=== PATIENT | male | born 1960 | race Caucasian/White ===

== ENCOUNTER 2016-04-21 13:49 | Emergency (ER) | payer OTHER ==
[2013-10-28 08:40] VITALS: BMI 22.3
[~2016-04-21 13:49] MED LIST: BUPRENORPHIN-N1 EACH SL
== END 2016-04-21 15:45 | disposition home or self-care (01) ==
LOC: D.ER 13:49
DX: R07.89 Other chest pain (principal); R74.8 Abnormal levels of other serum enzymes; J44.9 Chronic obstructive pulmonary disease, unspecified; Z86.73 Personal history of transient ischemic attack (TIA), and cerebral infarction without residual deficits; I10 Essential (primary) hypertension

== ENCOUNTER 2016-06-19 11:32 | Outpatient (CLI) | payer OTHER ==
[~2016-06-19] VITALS: Ht 175.3 cm; Wt 70.0 kg
--- NOTE | ~2016-06-19 | HEMODYNAMI ---
PATIENT:RANDA ROSENBAUM JR MEDICAL RECORD: [id number] : 58 LOCATION:[facility] D.6 ADMISSION DATE: 06/19/16 Generatedon:06/20/20168:36 Patient name: RANDA ROSENBAUM Patient #: [id number] : 1960 Date of study: 06/20/2016 Page: Of Hemodynamic Procedure Report Patient Data Patient Demographics Procedure consent was obtained First Name: RANDA Gender: Male Last Name: ILSA Suffix: Patient #: [id number] : 1960 Age: 55 year(s) SSN: [id number] Race: Unknown Additional ID: [id number] Contact details [address]: [address] [place] [address] State: [place] City: [place] Zip code: [address] Admission Admission Data Admission Date: 06/19/2016 Admission Time: 11:32 Arrival Date: 06/20/2016 Arrival Time: 0:00 Room #: D.2116 Height (in.): 69.03 BSA: 2.73 (m2) Height (cm.): 175.34 BMI: 57.01 (kg/m2) Weight (lbs.): 386.38 Weight (kg.): 175.26 Lab Results Lab Result Date: 06/20/2016 Lab Result Time: 0:00 Biochemistry Name Units Result Min Max BUN mg/dl 9 --(*---)-- 7 18 CK-MB ng/ml 1.1 --(-*--)-- 0 3.6 Creatinine mg/dl 0.9 --(-*--)-- 0.6 1.3 Creatinine l 112 --(-*--)-- 21 215 Kinase Troponin l ng/ml 0.017 --(-*--)-- 0 0.06 CBC Name Units Result Min Max Hemoglobin g/dl 12.7 -*(----)-- 13.5 17.5 Procedure Procedure Types Cath Procedure Diagnostic Procedure [facility] w/Coronaries Miscellaneous Procedures Moderate Sedation up to 15 minutes Procedure Description Procedure Date Procedure Date: 06/20/2016 Procedure Start Time: 8:25 Procedure End Time: 8:33 Procedure Staff Name Function Los Oh MD Performing Physician Heladio Dinero RT Scrub Sean Stinson RN Nurse Kathy Jordan RT Monitor Procedure Data Cath Procedure Fluoroscopy Diagnostic fluoroscopy Total fluoroscopy Time: 0.9 time: 0.9 min min Diagnostic fluoroscopy Total fluoroscopy dose: 353 dose: 353 mGy mGy Contrast Material Contrast Material Type Amount (ml) Isovue 300 67 Entry Location Entry Primary Successful Side Size Upsize Upsize Entry Closure Succes sful Closure Location (Fr) 1 (Fr) 2 (Fr) Remarks Device Remarks Femoral Right 5 Fr Exoseal artery Estimated blood loss: 10 ml Diagnostic catheters Device Type Used For End Catheter Placement Cordis 5Fr Pigtail Procedure Catheter (MP) Cordis 5Fr JL 4.0 Procedure Catheter (MP) Cordis 5Fr 3DRC Catheter Procedure (MP) Procedure Complications No complications Procedure Medications Medication Administration Route Dosage Oxygen NC 2 l/min Lidocaine 2% added to field 20 Heparin Flush Bag added to field 2 bags (1000units/500ml NS) 0.9% NaCl I.V. 100 ml/hr Versed I.V. 2 mg Fentanyl I.V. 100 mcg Versed I.V. 2 mg Fentanyl I.V. 100 mcg Versed I.V. 2 mg Fentanyl I.V. 100 mcg Hemodynamics Rest BSA: 2.73 (m2) HGB: 12.7 (g/dl) O2 Consumption: Estimated: 303.53 (ml/min) O2 Co nsumption indexed: Estimated:111.18 (ml/min/m) Heart Rate: 51 (bpm) Snapshots Pre Cath Intra NCS Post Cath Vital Signs Time Heart Resp SPO2 NIBP Rhythm Pain Sedation Rate (ipm) (%) (mmHg) Status Level (bpm) 8:00:53 51 22 99 125/67(97) NSR 0 (11) 10(A) , No pain 8:05:05 50 18 100 112/65(95) NSR 0 (11) 10(A) , No pain 8:09:08 52 21 100 107/65(89) NSR 0 (11) 10(A) , No pain 8:13:14 53 19 98 110/60(82) NSR 0 (11) 10(A) , No pain 8:17:20 53 18 100 104/67(79) NSR 0 (11) 10(A) , No pain 8:21:24 53 17 99 105/64(84) NSR 0 (11) 10(A) , No pain 8:25:30 52 16 99 104/59(70) NSR 0 (11) 10(A) , No pain 8:29:35 55 20 98 107/58(85) NSR 0 (11) 10(A) , No pain 8:33:41 54 18 97 100/59(82) NSR 0 (11) 10(A) , No pain Medications Time Medication Route Dose Verified Delivered Reason Notes Effec tiveness by by 7:58:47 Oxygen NC 2 Los Buffie used for l/min Althea Stinson RN procedure 7:58:53 Lidocaine 2% added 20ml Los Los for local to vial Althea Oh MD anesthetic field 7:58:59 Heparin Flush added 2 Los Los used for Bag to bags Althea Oh MD procedure (1000units/500ml field NS) 8:03:53 0.9% NaCl I.V. 100 Los Buffie Per ml/hr Althea Stinson RN physician 8:25:30 Versed I.V. 2 mg Los Buffie for Althea Stinson RN sedation 8:25:36 Fentanyl I.V. 100 Los Buffie for mcg Althea Stinson RN sedation 8:28:53 Versed I.V. 2 mg Los Buffie for Althea Stinson RN sedation 8:28:56 Fentanyl I.V. 100 Los Buffie for keegan Stinson RN sedation 8:32:11 Versed I.V. 2 mg Los Buffie for Althea Stinson RN sedation 8:32:14 Fentanyl I.V. 100 Los Buffie for keegan Stinson RN sedation Procedure Log Time Note 7:37:14 Patient Weight : 175.26 kg 7:41:52 Lab Result : CK-MB 1.1 ng/ml 7:41:52 Lab Result : Creatinine 0.9 mg/dl 7:41:52 Lab Result : BUN 9 mg/dl 7:41:52 Lab Result : Hemoglobin 12.7 g/dl 7:41:52 Lab Result : Troponin l 0.017 ng/ml 7:41:52 Lab Result : Creatinine Kinase 112 l 7:42:04 Diagnostic Cath Status : Elective 7:42:46 Sean Stinson RN sent for patient. Start room use. 7:42:48 Time tracking: Regular hours 7:44:01 Plan of Care:Hemodynamics will remain stable., Cardiac rhythm will remain stable., Comfort level will be maintained., Respiratory function will remain adequate., Patient/ family verbilizes understanding of procedure., Procedure tolerated without complication., Recovers from procedure without complications.. 7:58:47 Oxygen 2 l/min NC was administered by Sean Stinson RN; used for procedure; 7:58:53 Lidocaine 2% 20ml vial added to field was administered by Los Oh MD; for local anesthetic; 7:58:59 Heparin Flush Bag (1000units/500ml NS) 2 bags added to field was administered by Los Oh MD; used for procedure; 7:59:28 Patient received from PCU to [facility] 2 Alert and oriented. Tansferred to table in Supine position. 7:59:29 Warm blankets applied, and vicenta hugger turned on for patient comfort. 7:59:30 Correct patient and procedure confirmed by team. 7:59:32 Signed procedure consent form obtained from patient. 7:59:33 ECG and BP/O2 sat monitors applied to patient. 7:59:34 Full Disclosure recording started 7:59:42 Vital chart was started 8:00:11 Rhythm: sinus bradycardia 8:00:28 H&P Date Dictated: 06/19/2016 Within 30 days and on chart.. 8:00:30 Pre-procedure instructions explained to patient. 8:00:31 Pre-op teaching completed and patient verbalized understanding. 8:00:32 Baseline sample Acquired. 8:00:38 Family in patients room. 8:00:41 Patient NPO since Midnight. 8:00:48 Is the patient allergic to Iodine/contrast media? No. 8:02:02 Patient diabetic? No. 8:02:21 Snore? No 8:02:23 Sleep apnea? Yes 8:02:30 Dentures? No ? 8:02:36 Patient pain scale 0/10 ?. 8:02:43 IV patent on arrival in right hand with 0.9% NaCl at [facility]. 8:03:53 0.9% NaCl 100 ml/hr I.V. was administered by Sean Stinson RN; Per physician; 8:04:20 Lab results completed and on chart. 8:04:28 Right groin area was prepped with chlora-prep and draped in sterile fashion 8:04:32 Alarms reviewed by R. N. 8:04:33 Sharps counted by scrub and verified by R.N. 8:04:35 Physician paged 8:04:36 Physician arrived 8:07:59 Patient Height : 175.34 cm 8:08:22 Arrival Date: 06/20/2016 12:00:00 AM 8:09:48 Zero performed for pressure channel P1 8:24:01 --------ALL STOP TIME OUT------ 8:24:02 Final Timeout: patient, procedure, and site verified with staff and physician. All members of the team are in agreement. 8:24:04 Right groin site verified by team. 8:24:08 Physical assessment completed. ASA score P 2 - A patient with mild systemic disease as per Los Oh MD. 8:24:12 Sedation plan: IV Moderate Sedation Versed, Fentanyl 8:25:30 Versed 2 mg I.V. was administered by Sean Stinson RN; for sedation; 8:25:36 Fentanyl 100 mcg I.V. was administered by Sean Stinson RN; for sedation; 8:25:40 Procedure started. 8:25:43 Local anesthetic to right femoral artery with Lidocaine 2% by Los Oh MD.INITIAL ACCESS ONLY 8:26:01 A 5 Fr sheath was inserted into the Right Femoral artery 8:26:07 Use device set Femoral Dx 8:26:09 Acist Syringe opened to sterile field. 8:26:10 Bag Decanter opened to sterile field. 8:26:10 Medline Cath Pack opened to sterile field. 8:26:11 Terumo 5Fr Dermott Sheath opened to sterile field. 8:26:11 St Nicolas 260cm J .035 wire opened to sterile field. 8:26:12 Acist Hand Control opened to sterile field. 8:26:13 Acist Manifold opened to sterile field. 8:26:13 Diagnostic Infinity 5Fr Multipack catheter opened to sterile field. 8:26:14 Tegaderm 4 x 4 opened to sterile field. 8:26:28 A Cordis 5Fr Pigtail Catheter (MP) was advanced over the wire and used for Procedure. 8:26:36 LV gram done using FELIX 8:27:16 EF : 55 % 8:27:18 Catheter removed. 8:27:25 A Cordis 5Fr JL 4.0 Catheter (MP) was advanced over the wire and used for Procedure. 8:27:35 LCA angiography performed. 8:28:53 Versed 2 mg I.V. was administered by Sean Stinson RN; for sedation; 8:28:56 Fentanyl 100 mcg I.V. was administered by Sean Stinson RN; for sedation; 8:29:13 Catheter removed. 8:29:21 A Cordis 5Fr 3DRC Catheter (MP) was advanced over the wire and used for Procedure. 8:30:08 Catheter removed. 8:30:52 Cordis 5Fr Exoseal opened to sterile field. 8:31:11 Sheath removed intact; hemostasis achieved with Exoseal to the Right Femoral artery. 8:31:14 Procedure ended.(Physican Out) 8:31:42 Fluoroscopy time 00.90 minutes. 8:31:49 Fluoroscopy dose: 353 mGy 8:31:49 Flurop Dose total: 353 8:31:54 Contrast amount:Isovue 300 67ml. 8:31:55 Sharps counted by scrub and verified by R.N. 8:32:08 Insertion/operative site no bleeding no hematoma. 8:32:11 Versed 2 mg I.V. was administered by Sean Stinson RN; for sedation; 8:32:13 Post-op/insertion site Right Femoral artery dressed using a 4 x 4 and Tegaderm. 8:32:14 Fentanyl 100 mcg I.V. was administered by Sean Stinson RN; for sedation; 8:32:19 Post Procedure Pulses reassessed and unchanged 8:32:23 Post-procedure physical assessment completed. ASA score P 2 - A patient with mild systemic disease as per Los Oh MD. 8:32:37 Post procedure rhythm: unchanged. 8:32:40 Estimated blood loss: 10 ml 8:32:41 Post procedure instruction explained to patient.Patient verbalizes understanding. 8:32:46 Procedure and supply charges have been captured, reviewed, submitted and are correct. 8:33:09 Procedure Complication : No complications 8:33:12 Vital chart was stopped 8:33:13 See physician's report for complete and final results. 8:33:16 Report given to [facility]. 8:33:19 Patient transfered to [facility] with Bed. 8:33:21 Procedure ended. 8:33:21 Full Disclosure recording stopped 8:33:27 End room use (Document Last) Device Usage Item Name Manufacture Quantity Catalog Hospital Part Current Minimal Lo t# / Number Charge Number Stock Stock Serial# Code Acist Acist 1 [id number] [id number] 234685 370464 20 Syringe Medical Systems Inc Bag Microtek 1 2002S 382055 93136 507118 5 Decanter Medical Inc. Medline Cardinal 1 [id number] 574266 96901 938141 5 Cath Pack Health Terumo 5Fr Terumo 1 [id number] 559825 790954 148637 [address] Nicolas 1 756939 205826 386020 876631 30 260cm J .035 wire Acist Hand Acist 1 79880 384336 917013 078979 5 Control Medical Systems Inc Acist Acist 1 74656 469994 225737 185594 5 Manifold Medical Systems Inc Diagnostic Cardinal 1 [id number] 167542 04523 138026 30 Infinity Health 5Fr Multipack catheter Tegaderm 4 3M 1 1626W 427114 759773 725822 5 x 4 Cordis 5Fr Cardinal 1 151007 5 Pigtail Health Catheter (MP) Cordis 5Fr Cardinal 1 589332 5 JL 4.0 Health Catheter (MP) Cordis 5Fr Cardinal 1 672923 5 3DRC Health Catheter (MP) Cordis 5Fr Cardinal 1 EX500 599423 843044 982942 10 Hammerhead Navigation Signature Audit Superior Stage Time Signature Unsigned Intra-Procedure 06/20/2016 Kathy Jordan 8:36:22 AM RT(R) Signatures Monitor : Kathy Jordan Signature : RT Date : Time : [facility] [address] [place] [address]
--- NOTE | ~2016-06-19 | OP ---
PATIENT NAME: RANDA ROSENBAUM JR MEDICAL RECORD: [id number] :58 LOCATION:D.M2 D.2116 ADMISSION DATE: SURGEON: JOANN GARCIA MD DATE OF OPERATION: 06/20/2016 PROCEDURES: 1. Left heart catheterization. 2. Selective coronary angiography. 3. Left ventriculogram. INDICATIONS: Angina and coronary artery disease. PROCEDURE IN DETAIL: After informed consent was obtained and after detailed explanation of risks, benefits as well as alternative therapies, the patient elected to proceed with angiogram and heart catheterization. The right femoral area was prepped and draped in normal sterile fashion. The right femoral artery was cannulated via modified Seldinger technique with placement of 5-Somali sheath. All catheters exchanged through this sheath. FINDINGS: The left ventriculogram was performed in standard 30-degree FELIX view, reveals good cardiac wall motion throughout all segments. Overall ejection fraction 55%-60%. SELECTIVE CORONARY ANGIOGRAPHY: 1. Left main has 80% stenosis. 2. Left anterior descending has 80% stenosis in the mid vessel. 3. Right coronary has 70% stenosis at the ostium, 70% stenosis in mid vessel. OVERALL IMPRESSION: Severe 3-vessel coronary artery disease, left main disease. Evaluate for coronary bypass graft surgery. TRANSINT:[id number] Voice Confirmation ID: [id number] DOCUMENT ID: [id number] JOANN GARICA MD CC: [id number] DICTATION DATE: 06/20/16836 SENSOR TECHNICIAN: 06/20/16 0902 [facility] [address] [place] [address]
[2016-06-19 12:45] LABS: ALBUMIN 3.3 g/dL (3.4-5.0); ALKALINE PHOSPHATASE 113 U/L (46-116); ALT (SGPT) 19 U/L (10-68); BILIRUBIN - TOTAL 1.12 mg/dL (0.2-1.3); CALC OSMOLALITY 272 mosm/kg (275-300); CARBON DIOXIDE 31.7 mmol/L (21.0-32.0); CHLORIDE - SERUM 101 mmol/L (98-107); CREATININE - SERUM 0.9 mg/dL (0.6-1.3); GLUCOSE 92 mg/dL (74-106); POTASSIUM - SERUM 4.3 mmol/L (3.5-5.1); PROTEIN - SERUM 7.4 g/dL (6.4-8.2); SODIUM 137 mmol/L (136-145); UREA NITROGEN 9 mg/dL (7-18); eGFR NON AFRICAN AMERICAN > 90 mL/min (90-120)
[2016-06-19 12:50] LABS: CHOL - HDL RATIO 3.3 ratio (2.3-4.9); CHOLESTEROL, TOTAL 140 mg/dL (0-200); CKMB 1.1 U/L (0.0-3.6); CREATINE KINASE 112 UL (21-232); HDL CHOLESTEROL 43 mg/dL (32-96); LDL CHOLESTEROL 87 mg/dL (0-100); TRIGLYCERIDE 52 mg/dL (30-200)
[2016-06-19 12:51] LABS: TROPONIN-I < 0.017 ng/mL (0.000-0.060)
[2016-06-19 12:59] LABS: BASOPHILS 0.2 % (0-2); EOSINOPHILS 0.2 % (0-7); HEMATOCRIT 38.3 % (42.0-54.0); HEMOGLOBIN 12.7 g/dL (13.5-17.5); IMMATURE GRANULOCYTES 0.2 % (0-5); LYMPHOCYTES 28.7 % (15-50); MCH 30.5 pg (26.0-34.0); MCHC 33.2 g/dL (31.0-37.0); MCV 92.1 fL (80.0-100.0); MEAN PLATELET VOLUME 9.2 fL (7.4-10.4); MONOCYTES 10.9 % (2-11); NEUTROPHILS 59.8 % (40-80); PLATELET COUNT 214 10x3/uL (130-400); RBC 4.16 10x6/uL (4.20-6.10); WBC 6.6 10x3/uL (4.8-10.8)
--- NOTE | 2016-06-19 17:00 | NUR ---
ARRIVE TO ROOM VIA WHEELCHAIR FROM ER VIA WHEELCHAIR. ALERT AND ORIENTED X4. AMBULATES FROM WHEELCHAIR TO BED. GAIT STEADY. REFUSE SCDs. DENIES SOB. SINUS RHYTHM 60bpm ON TELEMETRY. IV RT FA SL. DROVE SELF HERE. PATIENT STATES, "I KNOW I WON'T BE ABLE TO DRIVE MYSELF TOMORROW."CONSENTS SIGNED ON CHART FOR BRUSH MAKER. CONTINUE ADMISSION PROCESS. BED LOCKED AND LOW. CALL LIGHT IN REACH. TWO SIDERAILS UP.
[2016-06-19 17:50] VITALS: BP 98/46; Ht 175.3 cm; Wt 70.0 kg
[2016-06-19 19:00] VITALS: BP 137/47
--- NOTE | 2016-06-19 19:00 | NUR ---
INITIAL ROUNDS MADE. PT SITTING UP IN BED WATCHING TV. DENIES NEEDS OR C/O AT THIS TIME. CALL LIGHT IN REACH. WILL CONT TO MONITOR.
--- NOTE | 2016-06-19 23:08 | NUR ---
FIRE WATCHER AT BEDSIDE FOR VS. NEEDS ADDRESSED AT THIS TIME. CALL LIGHT IN REACH. WILL CONT TO MONITOR.
[2016-06-20] VITALS: BP 108/55
--- NOTE | 2016-06-20 03:22 | NUR ---
RESTING WELL WITH EYES CLOSED, CALL LIGHT IN REACH. WILL CONT TO MONITOR.
[2016-06-20 04:00] VITALS: BP 95/44
--- NOTE | 2016-06-20 06:35 | NUR ---
UP TO SHOWER FOR PRE CATH.
--- NOTE | 2016-06-20 07:20 | NUR ---
RECEIVED PT IN BED AAOX4 RESP UNLABORED NAD NOTED PREOP MEDS GIVEN AT THIS TIME
[2016-06-20 08:03] VITALS: BP 101/51
--- NOTE | 2016-06-20 08:33 | HP ---
PATIENT: RANDA ROSENBAUM JR MEDICAL RECORD: [id number] ACCOUNT: [id number] LOCATION:[address] : 58 ADMISSION DATE: 06/19/16 HISTORY AND PHYSICAL EXAMINATION DIAGNOSES: 1. Unstable angina. 2. Coronary artery disease. 3. Previous percutaneous transluminal coronary angioplasty stent times 3. HISTORY OF PRESENT ILLNESS: Mr. Rosenbaum presents with increasing anginal symptomatology over the past 2 days, just like that of his previous angina before needing a stent, status post PTCA stent at another institution times 3, last being approximately 3 years ago. His EKG is with no acute ST-T abnormalities, continues to have the episodes of chest pain. PHYSICAL EXAMINATION: GENERAL APPEARANCE: Well-nourished, well-developed, appears stated age. Level of distress, comfortable. PSYCHIATRIC: Mental status, alert, normal affect. Orientation, oriented to time, place and person. EYES: Lids and conjunctiva, noninjected. No discharge, no pallor. ENT: Lips, teeth, gums, normal dentition. Oropharynx, no cyanosis, no pallor. NECK: Carotid arteries, bilateral normal upstroke, no bruits, no thrills. JUGULAR VEINS: No jugular venous pressure or distention. CERVICAL LYMPH NODES: Nontender, nonenlarged. THYROID: Not enlarged. Nontender. No nodules. LUNGS: Respiratory effort, unlabored. CHEST: Normal curvature. No thoracic deformity. No chest wall tenderness. Percussion, resonant. Auscultation, clear. No wheezes, no rales, no rhonchi. CARDIOVASCULAR: Precordial exam, nondisplaced. No heaves or pericardial thrills. Rate and rhythm, regular. Heart sounds, normal S1, normal S2. No S3, no gallop, no rub. Systolic murmur, not heard. Diastolic murmur, not heard. EXTREMITIES: No cyanosis, no edema. Peripheral pulses, full and equal in all extremities, except as noted. No bruits appreciated. ABDOMEN: Soft, nondistended. Normal aorta. No bruit. Nontender. No masses. Liver, nontender, no hepatomegaly. Spleen, nontender, no splenomegaly. MUSCULOSKELETAL: No joint tenderness. No joint swelling. No erythema. NEUROLOGICAL: Normal gait, normal strength, normal tone. SKIN: Warm and dry. REVIEW OF SYSTEMS: The patient reports easy bruising but reports no swollen glands. The patient reports no fever, no night sweats, no significant weight gain, no significant weight loss. No significant exercise tolerance. The patient reports no dry eyes, no irritation, no vision change. Patient reports no difficulty hearing and no ear pain. Patient reports no frequent nose bleeds or nose and sinus problems. Patient reports on arm pain on exertion. No shortness of breath while lying down. No history of heart murmur. Patient reports no cough, no wheezing or coughing up blood. Patient reports no abdominal pain, no vomiting. Normal appetite. No diarrhea and not vomiting blood. No nausea and no constipation. Patient reports no incontinence. No difficulty urinating. No hematuria. No increased frequency. Patient reports no muscle aches. No weakness, no arthralgias, no back pain. No swelling of the extremities. Patient reports no abnormal mole, no jaundice, no rashes. Reports no loss of consciousness. No weakness and no numbness. No seizures, dizziness, HISTORY AND PHYSICAL [id number] RANDA ROSENBAUM JR or headaches. The patient reports no depression, no sleep disturbance, feeling safe in a relationship and no alcohol abuse. Patient reports on fatigue. Reports no runny nose or sinus pressure. No itching, no hives, and no frequent sneezing. OVERALL IMPRESSIONS: Chest pain compatible with angina in a patient with multivessel coronary artery disease, most likely has recurrent hemodynamically significant disease. We will proceed with coronary angiography in the a.m. Further care depends upon findings of the angiography. TRANSINT:[id number] Voice Confirmation ID: [id number] DOCUMENT ID: [id number] JOANN GARCIA MD at 0833 CC: [id number] DICTATION DATE: 06/19/16 1543 HARVESTING MANAGER: 06/19/16 1605 [facility] [address] [place] [address]
--- NOTE | 2016-06-20 08:50 | NUR ---
RECEIVED PT VIA BED FROM SCRATCHER RT ANATOLY ROSEN C/D/I VSS NAD NOTED
--- NOTE | 2016-06-20 12:00 | NUR ---
DR CACERES HERE TO SEE PT
[2016-06-20 13:20] LABS: BASOPHILS 0.2 % (0-2); EOSINOPHILS 0.2 % (0-7); HEMOGLOBIN 12.5 g/dL (13.5-17.5); IMMATURE GRANULOCYTES 0.2 % (0-5); LYMPHOCYTES 22.5 % (15-50); MCH 30.8 pg (26.0-34.0); MCHC 32.9 g/dL (31.0-37.0); MCV 93.6 fL (80.0-100.0); MONOCYTES 15.3 % (2-11); NEUTROPHILS 61.6 % (40-80); PLATELET COUNT 216 10x3/uL (130-400); PLT FUNCT.(P2Y12) PLAVIX 186 PRU (194-418); RBC 4.06 10x6/uL (4.20-6.10); RDW 12.9 % (11.5-14.5)
--- NOTE | 2016-06-20 13:30 | NUR ---
PT DISCHARGED HOME LEFT UNIT WITH ALL PERSONAL BELONGINGS VIA W/C
--- NOTE | 2016-06-20 13:30 | NUR ---
REVIEWED DISCHARGE INSTRUCTIONS WITH PT AND STATES UNDERSTANDING COPY GIVEN SALINE LOCK DCD TO RFA WITH 20 GA IV CATHETER INTACT SITE FREE OF REDNESS OR EDEMA ALL PROCEDURES ORDERED BY DR CACERES COMPLETE PT STATES UNDERSTANDING OF COMING BACK IN THRU OUTPATIENTS ON SUNDAY
[2016-06-20 13:37] LABS: APTT 30.4 SECONDS (22.8-39.4); INR 0.97 (0.85-1.17); PROTIME 12.7 SECONDS (11.6-15.0)
[2016-06-20 14:03] LABS: ALBUMIN 3.2 g/dL (3.4-5.0); ALKALINE PHOSPHATASE 119 U/L (46-116); ALT (SGPT) 21 U/L (10-68); BILIRUBIN - TOTAL 0.51 mg/dL (0.2-1.3); CALC OSMOLALITY 276 mosm/kg (275-300); CALCIUM 8.6 mg/dL (8.5-10.1); CARBON DIOXIDE 30.8 mmol/L (21.0-32.0); CHLORIDE - SERUM 103 mmol/L (98-107); CHOLESTEROL, TOTAL 142 mg/dL (0-200); CREATININE - SERUM 0.8 mg/dL (0.6-1.3); GLUCOSE 91 mg/dL (74-106); PHOSPHOROUS 3.9 mg/dL (2.5-4.9); POTASSIUM - SERUM 4.8 mmol/L (3.5-5.1); PROTEIN - SERUM 6.4 g/dL (6.4-8.2); SODIUM 139 mmol/L (136-145); T4 THYROXIN - FREE 1.04 ng/dL (0.76-1.46); THYROID STIMULATING HORMONE 1.43 uIU/mL (0.36-3.74); UREA NITROGEN 10 mg/dL (7-18); URIC ACID 4.6 mg/dL (2.6-7.2); eGFR NON AFRICAN AMERICAN > 90 mL/min (90-120)
[2016-06-20 14:56] LABS: COLD SCREEN ROOM TEMP NEGATIVE (NEGATIVE)
[2016-06-20 15:03] LABS: COLD SCREEN @ 4 DEGREES 2+ (NEGATIVE)
[2016-06-21 10:19] LABS: HEPATITIS C ANTIBODY <0.1 (0.0-0.9)
== END 2016-06-20 13:30 | disposition home or self-care (01) ==
LOC: D.ER 11:32 → D.OPS 11:32 → D.ER 11:32 → D.M2 11:32 → EDSTATUS 14:33 → D.SDCHOLD 14:34 → D.M2 15:52 → D.OPS 06-20 13:30
PROVIDERS: Emergency Medicine; Internal Medicine Cardiovascular Disease
DX: I25.110 Atherosclerotic heart disease of native coronary artery with unstable angina pectoris (principal); Z95.5 Presence of coronary angioplasty implant and graft

== ENCOUNTER → 2016-06-21 10:25 | Outpatient (CLI) | payer OTHER ==
[2016-06-19 17:50] VITALS: BMI 24.4
== END | disposition home or self-care (01) ==
LOC: D.RT 10:25
DX: J44.9 Chronic obstructive pulmonary disease, unspecified (principal); Z01.810 Encounter for preprocedural cardiovascular examination; Z01.811 Encounter for preprocedural respiratory examination

== ENCOUNTER 2016-06-23 05:22 | Inpatient (IN) | payer OTHER ==
[2016-06-23] VITALS (40 sets, daily range): BP systolic 92–156; BP diastolic 40–61; Ht 175.3 cm; Wt 69.6 kg
[~2016-06-23] VITALS: Ht 175.3 cm; Wt 69.6 kg
[2016-06-23] MEDS ORDERED: ATIVAN1 MG PO (06:06)
[2016-06-23 07:57] LABS: PLT FUNCT.(P2Y12) PLAVIX 262 PRU (194-418)
[2016-06-23 14:13] LABS: APTT 36.7 SECONDS (22.8-39.4); INR 1.42 (0.85-1.17); PROTIME 17.3 SECONDS (11.6-15.0)
[2016-06-23 14:14] LABS: CALC OSMOLALITY 293 mosm/kg (275-300); CARBON DIOXIDE 30.9 mmol/L (21.0-32.0); CHLORIDE - SERUM 108 mmol/L (98-107); CREATININE - SERUM 0.8 mg/dL (0.6-1.3); SODIUM 146 mmol/L (136-145); UREA NITROGEN 12 mg/dL (7-18); eGFR NON AFRICAN AMERICAN > 90 mL/min (90-120)
[2016-06-23 14:15] LABS: GLUCOSE 145 mg/dL (74-106)
[2016-06-23 14:36] LABS: HEMATOCRIT 27.8 % (42.0-54.0); HEMOGLOBIN 9.5 g/dL (13.5-17.5); MCH 30.9 pg (26.0-34.0); MCHC 34.2 g/dL (31.0-37.0); MCV 90.6 fL (80.0-100.0); MEAN PLATELET VOLUME 8.7 fL (7.4-10.4); RBC 3.07 10x6/uL (4.20-6.10); RDW 12.7 % (11.5-14.5); WBC 14.7 10x3/uL (4.8-10.8)
--- NOTE | 2016-06-23 14:37 | NUR ---
PT ARRIVED BY BED TO ROOM. SWITCHED OVER TO ICU MONITORS. BILATERAL SOFT WRIST RESTRAINTS APPLIED.
--- NOTE | 2016-06-23 15:30 | NUR ---
INVOS MONITOR: LEFT-55 RIGHT-66
--- NOTE | 2016-06-23 17:05 | NUR ---
PT SWITCHED OVER TO CPAP MODE ON VENT. PS 10. FIO2 40%. RESP RATE 18 PT PULLING TV OF 500.
--- NOTE | 2016-06-23 18:05 | NUR ---
INVOS: LEFT-56 RIGHT-62
--- NOTE | 2016-06-23 18:11 | NUR ---
FAMILY AT BEDSIDE. UPDATED ON PT'S STATUS. PT TOLERATING CPAP WELL.
--- NOTE | 2016-06-23 18:33 | NUR ---
DR. CACERES AT BEDSIDE. TPM: CHANGED TO VVI 60 VMA 10. HR 96. V-SENSING.
--- NOTE | 2016-06-23 18:35 | NUR ---
PT EXTUBATED TO 4LNC PER PROTOCOL. PT TOLERATED WELL. RESP 22. O2 SAT 100%.
--- NOTE | 2016-06-23 19:20 | NUR ---
REPORT RECVD. CARE ASSUMED. INITIAL ASSMNT COMPLETED. SEE FLOWSHEET FOR ALL FINDINGS. LETHARGIC. PERRLA NOTED. MAEW ON COMMAND. RESP EVEN AND SHALLOW. LUNG SOUNDS DIM IN BASES. SPO2 98% ON O2 AT 4LPM NC. SR ON THE MONITOR. TEMP PM VVI 60, SENSING ONLY. PEDAL PULSES PER DOPPLER. RIGHT RADIAL AND LEFT GROIN A-LINES ZEROED AND BALANCED. HYPOTENSIVE. LEVOPHED AND DOPAMINE GTTS IN USE. RIGHT IJ SWAN PATENT, LOCKED, AND SECURED. ZEROED AND BALANCED. CHEST TUBES X3 PATENT AND SECURED TO 20 SM SX. MINIMAL NLOODY DRNG NOTED. ABD SOFT, BS HYPO X4. F/C PATENT TO CRITICORE WITH CLR YELLOW UOP. TURNED AND REPOSITIONED. HOB UP. RESTING WITH NO S/S OF PAIN. 1:[address] CONT CURRENT POC.
--- NOTE | 2016-06-23 21:09 | NUR ---
AT BEDSIDE. UPDATE GIVEN. PT RESTING WITH NO DISTRESS. TOLERATING ICE CHIPS. DROWSY. EYES CLOSED. VSS. SR ON THE MONITOR. SYS B/P WITHIN PARAMETERS. REMAINS ON LEVOPHED AND DOPAMINE GTTS. REPOSITIONED FOR COMFORT AND SKIN INTEGRITY. HOB UP. 1:[address] CONT CURRENT POC.
--- NOTE | 2016-06-23 22:36 | NUR ---
ABGS DRAWN AND RESULTED. K+ LEVEL TO BE TREATED. CA+ LEVEL TO BE TREATED. 2 UNITS PRBC TO BE GIVEN. INITIATING ORDERS AT THIS TIME. SYS B/P 114/45 SR ON THE MONITOR. CONT CURRENT POC.
--- NOTE | 2016-06-23 23:15 | NUR ---
REASSESSMENT COMPLETED. SEE FLOWSHEET FOR ALL FINDINGS. RESTFUL. PERRLA NOTED. MAEW ON COMMAND. RESP EVEN AND SHALLOW. LUNG SOUNDS DIM IN BASES. SPO2 98% ON O2 AT 3LPM NC. SR ON THE MONITOR. TEMP PM VVI 60, SENSING ONLY. PEDAL PULSES PER DOPPLER. RIGHT RADIAL AND LEFT GROIN A-LINES INTACT. HYPOTENSIVE. LEVOPHED AND DOPAMINE GTTS IN USE. WEANING LEVOPHED. RIGHT IJ SWAN PATENT, LOCKED, AND SECURED. CHEST TUBES X3 PATENT AND SECURED TO 20 SM SX. MINIMAL NLOODY DRNG NOTED. ABD SOFT, BS HYPO X4. F/C PATENT TO CRITICORE WITH CLR YELLOW UOP. TURNED AND REPOSITIONED. HOB UP. CITY PLANNING TEACHER MORPHINE IN USE FOR PAIN. 1:[address] CONT CURRENT POC.
[2016-06-24] VITALS (88 sets, daily range): BP systolic 100–140; BP diastolic 47–61
--- NOTE | 2016-06-24 01:06 | NUR ---
RESTING WITH NO DISTRESS. VSS. WEANING LEVOPHED. PRBC INFUSING WITH NO ADV REACTION SEEN. SR ON THE MONITOR. TURNED AND REPOSITIONED. HOB UP. 1:1 NURSE MONITORING IN PROGRESS. CONT CURRENTPOC.
--- NOTE | 2016-06-24 01:30 | NUR ---
2 UNITS PRBC INFUSED. NO ADV REACTION SEEN. LEVOPHED GTT WEANED OFF.
--- NOTE | 2016-06-24 02:25 | NUR ---
ABGS DRAWN AND RESULTED. ALL VALUES WITHIN PARAMETERS. CONT TO WEAN PRESSORS. NO DISTRESS. CONT POC.
--- NOTE | 2016-06-24 03:15 | NUR ---
REASSESSMENT COMPLETED. SEE FLOWSHEET FOR ALL FINDINGS. AOX4. PERRLA NOTED. MAEW ON COMMAND. RESP EVEN AND SHALLOW. LUNG SOUNDS DIM IN BASES. SPO2 98% ON O2 AT 3LPM NC. SR ON THE MONITOR. TEMP PM VVI 60, SENSING ONLY. PEDAL PULSES PER DOPPLER. RIGHT RADIAL AND LEFT GROIN A-LINES INTACT. SYS B/P WITHIN PARAMETERS. DOPAMINE GTT WEANING. RIGHT IJ SWAN PATENT, LOCKED, AND SECURED. CHEST TUBES X3 PATENT AND SECURED TO 20 SM SX. MINIMAL BLOODY DRNG NOTED. ABD SOFT, BS HYPO X4. F/C PATENT TO CRITICORE WITH STEPHANIE UOP. TURNED AND REPOSITIONED. SENIOR INFORMATION SECURITY CONSULTANT MORPHINE IN USE FOR PAIN CONTROL. HOB UP. RESTING WITH NO S/S OF PAIN. 1:[address] CONT CURRENT POC.
--- NOTE | 2016-06-24 05:15 | NUR ---
TURNED AND REPOSITIONED. PROPOSAL EDITOR IN USE FOR PAIN CONTROL. VSS. SR ON THE MONITOR. WEANINF DOPAMINE PER ORDERS. HOB UP. REMAINS IN 1:1 NURSING CARE. CONT CURRENT POC.
[2016-06-24 06:25] LABS: HEMATOCRIT 28.8 % (42.0-54.0); HEMOGLOBIN 9.9 g/dL (13.5-17.5); MCH 29.9 pg (26.0-34.0); MCHC 34.4 g/dL (31.0-37.0); MEAN PLATELET VOLUME 8.8 fL (7.4-10.4); RBC 3.31 10x6/uL (4.20-6.10); RDW 14.6 % (11.5-14.5)
--- NOTE | 2016-06-24 06:28 | NUR ---
AT BEDSIDE. UPDATE GIVEN.
[2016-06-24 06:29] LABS: WBC 9.6 10x3/uL (4.8-10.8)
--- NOTE | 2016-06-24 06:30 | NUR ---
ABGS DRAWN AND RESULTED. ALL WITHIN PARAMETERS. DECREASED FIO2 TO 2LPM NC. INCENTIVE DONE. PULLS 750, FAIR EFFORT. CONT POC.
[2016-06-24 06:44] LABS: ALBUMIN 3.3 g/dL (3.4-5.0); ALKALINE PHOSPHATASE 49 U/L (46-116); ALT (SGPT) 18 U/L (10-68); BILIRUBIN - TOTAL 2.09 mg/dL (0.2-1.3); CALC OSMOLALITY 282 mosm/kg (275-300); CALCIUM 7.9 mg/dL (8.5-10.1); CARBON DIOXIDE 32.1 mmol/L (21.0-32.0); CHLORIDE - SERUM 106 mmol/L (98-107); CREATININE - SERUM 0.7 mg/dL (0.6-1.3); GLUCOSE 119 mg/dL (74-106); PROTEIN - SERUM 5.3 g/dL (6.4-8.2); SODIUM 142 mmol/L (136-145); UREA NITROGEN 10 mg/dL (7-18); eGFR NON AFRICAN AMERICAN > 90 mL/min (90-120)
[2016-06-24 06:45] LABS: POTASSIUM - SERUM 4.6 mmol/L (3.5-5.1)
--- NOTE | 2016-06-24 08:32 | NUR ---
0715-RECIEVED PER FLOW SHEET-PT AWAKE AND ALERT-ABLE TO FOLLOW DIRECTION EASILY-REPOSITIONED TO L WITH PT ASSIST-REZEROED MONITOR-MORPHINE STICKER OPERATOR IN USE-CURRENT STATUS UPDATE GIVEN TO DR CACERES-NO CHANGES IN ORDERS AT THIS TIME
--- NOTE | 2016-06-24 11:29 | NUR ---
1110- DR CACERES AT BEDSIDE-PLASMALYTE DECREASED TO 30ML/H--DIRECTED TO D/C L FEM WITH FEM STOP 1124-L FEM AIDA D/C'D-SUTURE REMOVED-FEMSTOP PER PROTOCOL-HEMOSTASIS WITH NO HEMATOMA AT 94 MMHG-L FOOT WARM TO TOUCH-FAINT PP-INSTRUCTED SUPINE APPROX 1H-PT POOR COMPLIANT-REPEATEDLY MOVED L LEG-REINSTRUCTED AND POSITIONED
--- NOTE | 2016-06-24 11:47 | NUR ---
1145-25MMHG FEMSTOP-DOPPLER FYIER-OMNB-[id number] COOL TO TOUCH-PLASMALYTE AT 30-DOPAMINE AT 3MCG-121/59
--- NOTE | 2016-06-24 13:06 | OP ---
PATIENT NAME: RANDA ROSENBAUM JR MEDICAL RECORD: [id number] :59 LOCATION:[id number] ADMISSION DATE:06/23/16 SURGEON: DARIEL CACERES MD DATE OF OPERATION: 06/23/2016 SURGEON: Dariel Caceres MD. ANESTHESIA: General endotracheal, Dr. Rubio. OPERATIONS PERFORMED: Aortocoronary artery bypass utilizing left internal thoracic to the left anterior descending, reverse saphenous vein segment to the obtuse marginal coronary artery and reverse saphenous vein segment to the distal right coronary artery. PREOPERATIVE DIAGNOSES: Severe atherosclerosis, coronary arteries with a left main lesion and intermediate coronary syndrome. POSTOPERATIVE DIAGNOSES: Severe atherosclerosis, coronary arteries with a left main lesion and intermediate coronary syndrome. INDICATION FOR OPERATION: Intermediate coronary syndrome. FINDINGS OF THE OPERATION: The left internal thoracic artery and greater saphenous vein were of excellent quality for grafting. The target vessels were also of good caliber and quality. Transesophageal echo after induction demonstrated a 20% ejection fraction. This increased to 55% to 60% post-revascularization. ESTIMATED BLOOD LOSS: Cell Saver was used. DESCRIPTION OF PROCEDURE: After informed consent, adequate preoperative medication evaluation, the patient was brought to the operating room, placed on the table in the supine position. After induction of general endotracheal anesthesia and application of appropriate monitoring devices, the chest, neck, abdomen, and both legs were prepped and draped in a sterile field, utilizing Betadine scrub, alcohol, and Betadine solution. A Betadine-impregnated drape was also used. A 5-sheath was placed in the left common femoral artery retrogradely in case a balloon pump was needed. Saphenous vein was then harvested from the right leg and prepared for reverse saphenous vein grafting. The leg was closed over drains utilizing 3-0 Vicryl and skin benedict. A median sternotomy incision was used and dissection carried down the fascia. Hemostasis maintained with electrocautery. Sternum was divided. Innominate vein was identified and protected. Left internal thoracic was taken down and prepared for grafting. The patient was given a calculated dose of heparin, cannulated in the standard fashion utilizing 1 aortic, 1 two-stage cannula in the atrium and inferior vena cava. The patient was placed on cardiopulmonary bypass, cooled to 32 degrees centigrade. A cross clamp was placed just proximal to the aortic cannula. The patient was given cardioplegic solution through the aortic root. The patient was given a cold induction and cold maintenance. The patient was given cold intermittent cardioplegic solution throughout the procedure, either through the grafts, the root or a combination of both. The first vessel to be grafted was the distal right. It was grafted end-to-side utilizing a running 7-0 Prolene suture. Graft was measured back to the aorta and a proximal anastomosis fashioned utilizing running 6-0 Prolene suture. Next, the second OPERATIVE REPORT [id number] RANDA ROSENBAUM obtuse marginal was grafted end-to-side utilizing a running 7-0 Prolene suture. The graft was measured back to the aorta and a proximal anastomosis fashioned utilizing running 6-0 Prolene suture. Next, left internal thoracic was brought through the hole in pericardium, sutured left anterior descending end-to-side utilizing a running 8-0 Prolene suture. All maneuvers to remove trapped air were performed. The patient was given warm cardioplegic reperfusion and controlled reperfusion. The patient rewarmed to 37 degrees centigrade. Two atrial and two ventricular pacing wires were placed on the heart and brought through the epigastric area. The patient was weaned cardiopulmonary bypass. After being stable off bypass, he was given calculated dose of protamine to reverse the heparin. Hemostasis was achieved. A #40 right angle and #36 chest tubes were brought in through the epigastric area and placed in mediastinum. A separate left pleural tube was connected to underwater seal and suction. Chest was again irrigated. Instrument count and sponge count were correct times 2. Chest was closed in layers utilizing #7 wire on the sternum, #2 Vicryl on linea alba and pectoralis fascia. Subcutaneous tissue was approximated with 3-0 Vicryl and skin approximated with 3-0 subcuticular Vicryl. Sterile dressings were applied. The patient tolerated the procedure well and transferred to the CV ICU in satisfactory condition. TRANSINT:[id number] Voice Confirmation ID: [id number] DOCUMENT ID: [id number] DARIEL CACERES MD at 1306 CC: [id number] DICTATION DATE: 06/23/16 1444 BEAUTY SALES CONSULTANT: 06/23/16 2310 ADM IN [address] [id number] [place] [address]
--- NOTE | 2016-06-24 14:59 | NUR ---
NOTED 6 BEAT RUN OF JUNCTIONAL TACHYCARDIA-SPONT RETURN TO SR -NO PACED BEATS WITH VVI 60/10 PACER-URGENT K AND MAG SERUM DRAWN
[2016-06-24 15:05] LABS: MAGNESIUM - SERUM 2.1 mg/dL (1.8-2.4); POTASSIUM - SERUM 4.2 mmol/L (3.5-5.1)
--- NOTE | 2016-06-24 15:24 | NUR ---
MAG-2.1-K4.2-NO FURTHER ARRYTHMIA-SR ON MONITOR
--- NOTE | 2016-06-24 18:07 | NUR ---
ORAL CARE WITH PERIDEX PERFORMED ORDERED
--- NOTE | 2016-06-24 19:15 | NUR ---
REPORT RECVD. CARE ASSUMED. INITIAL ASSMNT COMPLETED. SEE FLOWSHEET FOR ALL FINDINGS. RESTFUL. PERRLA NOTED. MAEW ON COMMAND. RESP EVEN AND SHALLOW. LUNG SOUNDS WITH EXP WHEEZES TO UPPER LOBES AND DIMINISHED IN BASES. SPO2 98% ON O2 AT 2LPM NC. SR ON THE MONITOR. TEMP PM VVI 60, SENSING ONLY. PEDAL PULSES PER DOPPLER. RIGHT RADIAL A-LINE ZEROED AND BALANCED. GOOD WAVE FORM SEEN. CONT TO WEAN DOPAMINE. RIGHT IJ SWAN PATENT, LOCKED, AND SECURED. ZEROED AND BALANCED. CHEST TUBES X3 PATENT AND SECURED TO 20 SM SX. MINIMAL BLOODY DRNG NOTED. ABD SOFT BS HYPO X4. F/C PATENT TO CRITICORE WITH STEPHANIE UOP. TURNED AND REPOSITIONED. HOB UP. RESTING WITH NO S/S OF PAIN. POLISHER DIAL MORPHINE IN USE FOR PAIN CONTROL. 1:[address] HOB UP. HEELS BRIDGED. TEDS/SCDS ON. CONT CURRENT POC.
--- NOTE | 2016-06-24 21:18 | NUR ---
AT BEDSIDE. UPDATE GIVEN. PT TALKATIVE. VSS. SR ON THE MONITOR. DOUGH MAKER MORPHINE PROVIDING PAIN CONTROL. HS SNACK PROVIDED. PO FLUIDS IN REACH. REPOSITIONED FOR COMFORT. HOB UP. REMAINS IN 1:1 NURSING CARE.
--- NOTE | 2016-06-24 23:15 | NUR ---
REASSESSMENT COMPLETED. SEE FLOWSHEET FOR ALL FINDINGS. RESTFUL. PERRLA NOTED. MAEW ON COMMAND. RESP EVEN AND SHALLOW. LUNG SOUNDS DIM IN BASES. SPO2 97% ON O2 AT 2LPM NC. SR ON THE MONITOR. TEMP PM VVI 60, SENSING ONLY. PEDAL PULSES PER DOPPLER. RIGHT RADIAL A-LINE INTACT WITH GOOD WAVE FORM SEEN. SYS B/P WITHIN PARAMETERS. RIGHT IJ SWAN PATENT, LOCKED, AND SECURED. CHEST TUBES X3 PATENT AND SECURED TO 20 SM SX. MINIMAL BLOODY DRNG NOTED. ABD SOFT, BS HYPO X4. F/C PATENT TO CRITICORE WITH STEPHANIE UOP. TURNED AND REPOSITIONED. HOB UP. BEHAVIORAL HEALTH CASE MANAGER MORPHINE IN USE FOR PAIN. 1:[address] CONT CURRENT POC.
[2016-06-25] VITALS (44 sets, daily range): BP systolic 101–147; BP diastolic 48–81
--- NOTE | 2016-06-25 01:20 | NUR ---
RESTING WITH NO DISTRESS. VSS. SR ON THE MONITOR. WEANING DOPAMINE. SYS B/P WITHIN PARAMETERS. TURNED AND REPOSITIONED. PO FLUIDS AT BEDSIDE. TONGUE PRESSER MORPHINE PROVIDING PAIN CONTROL. HOB UP. CONT 1:1 MONITORING.
--- NOTE | 2016-06-25 03:15 | NUR ---
REASSESSMENT COMPLETED. SEE FLOWSHEET FOR ALL FINDINGS. RESTFUL. PERRLA NOTED. MAEW ON COMMAND. RESP EVEN AND SHALLOW. LUNG SOUNDS DIM IN BASES. SPO2 97% ON O2 AT 2LPM NC. SR ON THE MONITOR. TEMP PM VVI 60, SENSING ONLY. PEDAL PULSES PER DOPPLER. RIGHT RADIAL A-LINE INTACT WITH GOOD WAVE FORM SEEN. SYS B/P WITHIN PARAMETERS. RIGHT IJ SWAN PATENT, LOCKED, AND SECURED. CHEST TUBES X3 PATENT AND SECURED TO 20 SM SX. MINIMAL BLOODY DRNG NOTED. ABD SOFT, BS ACTIVE X4. F/C PATENT TO CRITICORE WITH STEPHANIE UOP. TURNED AND REPOSITIONED. HOB UP. BARREL DEDENTING MACHINE OPERATOR MORPHINE IN USE FOR PAIN. 1:[address] CONT CURRENT POC.
--- NOTE | 2016-06-25 05:17 | NUR ---
RESTING WITH NO DISTRESS. REPOSITIONED FOR COMFORT AND SKIN INTEGRITY. VSS. SR ON THE MONITOR. SYS B/P WITHIN PARAMETERS. NO PRESSORS IN USE. PO FLUIDS PROVIDED. HANDLE LATHE OPERATOR MORPHINE PROVIDING PAIN CONTROL. HOB UP. CONT 1:1 NURSING CARE.
--- NOTE | 2016-06-25 06:11 | NUR ---
AT BEDSIDE. UPDATE GIVEN.
[2016-06-25 06:18] LABS: HEMOGLOBIN 8.7 g/dL (13.5-17.5); MCH 29.6 pg (26.0-34.0); MCHC 33.5 g/dL (31.0-37.0); MCV 88.4 fL (80.0-100.0); MEAN PLATELET VOLUME 9.4 fL (7.4-10.4); PLATELET COUNT 95 10x3/uL (130-400); RBC 2.94 10x6/uL (4.20-6.10); RDW 14.4 % (11.5-14.5); WBC 8.2 10x3/uL (4.8-10.8)
[2016-06-25 06:29] LABS: ALBUMIN 2.8 g/dL (3.4-5.0); ALKALINE PHOSPHATASE 56 U/L (46-116); ALT (SGPT) 18 U/L (10-68); CALC OSMOLALITY 270 mosm/kg (275-300); CALCIUM 8.4 mg/dL (8.5-10.1); CARBON DIOXIDE 31.7 mmol/L (21.0-32.0); CHLORIDE - SERUM 102 mmol/L (98-107); CREATININE - SERUM 0.7 mg/dL (0.6-1.3); GLUCOSE 116 mg/dL (74-106); POTASSIUM - SERUM 4.4 mmol/L (3.5-5.1); PROTEIN - SERUM 5.4 g/dL (6.4-8.2); SODIUM 135 mmol/L (136-145); UREA NITROGEN 12 mg/dL (7-18); eGFR NON AFRICAN AMERICAN > 90 mL/min (90-120)
--- NOTE | 2016-06-25 06:40 | NUR ---
ALL LAB VALUES WITHIN PARAMETERS.
[2016-06-25 07:25] LABS: PLATELET ESTIMATE DECREASED
--- NOTE | 2016-06-25 07:58 | NUR ---
0715-RECIEVED AWAKE ALERT-ABLE TO DO INCENTIVE [id number]-NON PRODUCTIVE COUGH-NOTED SR ON MONITOR-WITH NO ECTOPY AT THIS TIME-RICARDO X4 = STRONG-ABLE TO ANSWER ALL QUESTIONS APPROPRIATELY
--- NOTE | 2016-06-25 09:17 | NUR ---
AT [facility]
--- NOTE | 2016-06-25 10:07 | NUR ---
AT BEDSIDE-ASSISTING PT WITH COFFEE-PT SPILLED HOT COFFEE-TO UPPER L THIGH HIP AREA-SCREAMED IN PAIN-ICED WASH CLOTHES APPLIED TO [id number] CHANGE DONE- STATED DILUTED COFFEE WITH ICE WATER PRIOR TO GIVING TO PT-NO RED AREAS VISUALIZED-HAD TO BE DIRECTED BY PT TO PLACE CLOTHES WHERE HE FELT BURN SENSATION-HR 80 [id number] REMOVED AND PT AGREED
--- NOTE | 2016-06-25 10:14 | NUR ---
COLD CLOTHES REMOVED BY PT-STATED SENSATION BETTER- REMAINS AT BEDSIDE-KBRN
--- NOTE | 2016-06-25 17:50 | NUR ---
1230-PREMED VERSED TOTAL 4MG IVP GIVEN BY DR CACERES -FOR REMOVAL OF MEDIASTINAL CHEST TUBES -L THORACIC CHEST TUBE -CORDIS/SG-J-BRYANT X2-R RADIAL AIDA ACHIEVED DEMARCO OF 2-PT CONTINUES TO CONVERSE-O2 PLACED AT 2L-TOLERATED WELL-CORDIS AND SWAN RONNELL TIP INTACT-AIDA TIP TATRVT-L-APFUF DRAINS TIPS INTACT-HEMOSTASIS OBTAINED TO CORDIS SITE PER PROTOCOL-R RADIAL SITE PER PROTOCOL-PT CONTINUED TO USE MORPHINE CUSTOMER FACILITIES SUPERVISOR-STATING WE NEED THE ANESTHESIOLOGIST TO PUT HIM UNDER FOR PROCEDURE-O2 SAT DECREASED 90-COMPLETED WITH DEMARCO 1-2-SR ON MONITOR-SANCHEZ CATH D/C'D WITH TIP INTACT 1345-PHYSICAL THERAPY AT BEDSIDE-PT AMBULTAED ON-ROOM AIR-TOLERATED WELL 1530-SITTING UP IN CHAIR AND TOLERATING WELL REMAINS SR ON MONITOR 1700-30% OF DINNER TRAY TAKEN 1715-ASSISTED BACK TO BED-TOLERATED WELL-NOTED O2 SAT 88%-PLACED ON 2L WORKING SECOND HAND FOR ACTIVITY RECOVERY 1800-PT ON ROOM AIR-94%
--- NOTE | 2016-06-25 19:30 | NUR ---
REPORT RECVD. CARE ASSUMED. INITIAL ASSMNT COMPLETED. SEE FLOWSHEET FOR ALL FINDINGS. AOX4. VANNA NOTED. MAEW ON COMMAND. RESP EVEN AND SHALLOW. LUNG SOUNDS WITH EXP WHEEZES TO UPPER LOBES AND DIMINISHED IN BASES. SPO2 98% ON O2 AT 2LPM NC. SR ON THE MONITOR. TEMP PM VVI 60, SENSING ONLY. PEDAL PULSES PER DOPPLER. ABD SOFT. BS HYPO X4. BLADDER NON PALP. NO URGE TO VOID. TURNED AND REPOSITIONED. HOB UP. RESTING WITH NO S/S OF PAIN. BANKRUPTCY JUDGE MORPHINE IN USE FOR PAIN CONTROL. DENIES NEEDS. HOB UP. C/L IN REACH. BED ALARM ON. CONT CURRENT POC.
--- NOTE | 2016-06-25 21:00 | NUR ---
HS MEDS GIVEN. VSS. POSITIONED SELF FOR COMFORT. FAMILY AT BEDSIDE FOR VISITATION. NO NEEDS VOICED. HOB UP. C/L IN REACH. BED ALARM ON. CONT CURRENT POC.
--- NOTE | 2016-06-25 23:30 | NUR ---
REASSESSMENT COMPLETED. SEE FLOWSHEET FOR ALL FINDINGS. RESTING. AOX4. JELANIRJULIAN NOTED. MAEW ON COMMAND. RESP EVEN AND SHALLOW. LUNG SOUNDS WITH EXP WHEEZES TO UPPER LOBES AND DIMINISHED IN BASES. SPO2 98% ON O2 AT 2LPM NC. SR ON THE MONITOR. TEMP PM VVI 60, SENSING ONLY. PEDAL PULSES PER DOPPLER. ABD SOFT. BS HYPO X4. BLADDER NON PALP. NO URGE TO VOID. TURNED AND REPOSITIONED. HOB UP. RESTING WITH NO S/S OF PAIN. RETAIL ZONE SPECIALIST MORPHINE IN USE FOR PAIN CONTROL. DENIES NEEDS. HOB UP. C/L IN REACH. BED ALARM ON. CONT CURRENT POC.
[2016-06-26] VITALS (24 sets, daily range): BP systolic 92–115; BP diastolic 47–68
--- NOTE | 2016-06-26 01:30 | NUR ---
RESTING WITH NO DISTRESS. VSS. SR ON THE MONITOR. SUPERVISOR NUTRITIONAL YEAST MORPHINE PROVIDING PAIN CONTROL. HOB UP. C/L IN REACH. CONT CURRENT POC.
--- NOTE | 2016-06-26 03:30 | NUR ---
REASSESSMENT COMPLETED. SEE FLOWSHEET FOR ALL FINDINGS. RESTING. AOX4. VANNA NOTED. MAEW ON COMMAND. RESP EVEN AND SHALLOW. LUNG SOUNDS WITH EXP WHEEZES TO UPPER LOBES AND DIMINISHED IN BASES. SPO2 98% ON O2 AT 2LPM NC. AFEBRILE. SR ON THE MONITOR. TEMP PM VVI 60, SENSING ONLY. PEDAL PULSES PER DOPPLER. ABD SOFT. BS HYPO X4. BLADDER NON PALP. VOIDING TO URINAL. REPOSITIONS SELF. HOB UP. RESTING WITH NO S/S OF PAIN. ENROBING MACHINE OPERATOR MORPHINE IN USE FOR PAIN CONTROL. DENIES NEEDS. HOB UP. C/L IN REACH. BED ALARM ON. CONT CURRENT POC.
--- NOTE | 2016-06-26 05:00 | NUR ---
UP TO W/C FOR CHEST XRAY. BACK TO CHAIR AT BEDSIDE. VSS. SR ON THE MONITOR. TEMP PM INTACT. C/L IN REACH. PO FLUIDS AT BEDSIDE. DENIES NEEDS. CONT CURRENT POC.
[2016-06-26 06:40] LABS: HEMATOCRIT 24.9 % (42.0-54.0); HEMOGLOBIN 8.4 g/dL (13.5-17.5); MCHC 33.7 g/dL (31.0-37.0); MCV 88.9 fL (80.0-100.0); MEAN PLATELET VOLUME 9.3 fL (7.4-10.4); RBC 2.8 10x6/uL (4.20-6.10); RDW 14.1 % (11.5-14.5); WBC 7.6 10x3/uL (4.8-10.8)
--- NOTE | 2016-06-26 07:00 | NUR ---
Received report and assumed care of patient. Patient is currently awake, alert and oriented. Patient up in chair since PA and Lat this am. Left subclavian CVL with Plasmalyte @ 30, Morphine HAT IRONER infusing. Previous R swan site with dressing intact. TPM wires x2 secured to chest, VVI 60. Sensing only. Sinus rhtyhm in the 70s on CM. 2 L o2 via nasal cannula. Teds in place bilaterally, patient refuses SCDS. Bedside table next to patient with personal items. Call light within reach. See shift assessment flowsheet for full assessment.
[2016-06-26 07:04] LABS: ALBUMIN 2.5 g/dL (3.4-5.0); ALKALINE PHOSPHATASE 66 U/L (46-116); ALT (SGPT) 20 U/L (10-68); CALC OSMOLALITY 269 mosm/kg (275-300); CALCIUM 7.9 mg/dL (8.5-10.1); CARBON DIOXIDE 26.1 mmol/L (21.0-32.0); CHLORIDE - SERUM 100 mmol/L (98-107); CREATININE - SERUM 0.6 mg/dL (0.6-1.3); GLUCOSE 118 mg/dL (74-106); PROTEIN - SERUM 5.5 g/dL (6.4-8.2); SODIUM 135 mmol/L (136-145); UREA NITROGEN 11 mg/dL (7-18); eGFR NON AFRICAN AMERICAN > 90 mL/min (90-120)
[2016-06-26 07:09] LABS: POTASSIUM - SERUM 3.7 mmol/L (3.5-5.1)
--- NOTE | 2016-06-26 07:40 | NUR ---
Patient up to Bathroom with minimal assistance. Instructed admissions manager rn light located on wall.
--- NOTE | 2016-06-26 08:32 | NUR ---
Patient finished with breakfast tray. Currently receiving IVPB KCL per electrolyte replacement.
--- NOTE | 2016-06-26 09:25 | NUR ---
Patient given IV torodol, Morphine TELEVISION ANTENNA INSTALLER D/C. Patient verbalizes concerns with TELEVISION ANTENNA INSTALLER being d/c'd and that his pain will not be controlled. Informed patient torodol given and that his home medication will be restarted shortly. Patient stated he felt like his heart was racing. HR remains in the 70s, sinus rhythm. RR in the 30s, instructed patient to sit back and slow his breathing down, cool wash cloth provided. Will watch patient closely.
--- NOTE | 2016-06-26 09:28 | NUR ---
NUTRITION MONITORING & EVAL CHART REVIEWED, PT VISIT. TOLERATING AHA DIET. PT REPORTS ~50% INTAKE BREAKFAST. RD FOLLOWING
--- NOTE | 2016-06-26 10:06 | NUR ---
Dr conner Duarte RN in room to speak to patient regarding pain control. Patient seems better at this time.
--- NOTE | 2016-06-26 10:30 | NUR ---
Patient pulling [phone] on I/S.
--- NOTE | 2016-06-26 10:45 | NUR ---
in to see patient. POC discussed.
--- NOTE | 2016-06-26 12:16 | NUR ---
Patient requesting pain medication. Given per EMAR.
--- NOTE | 2016-06-26 12:37 | NUR ---
Patient up to bathroom.
--- NOTE | 2016-06-26 13:20 | NUR ---
Patient ambulated with PT. Tolerating well. Back to chair.
--- NOTE | 2016-06-26 16:16 | NUR ---
Patient sleeping up in chair. VSS.
--- NOTE | 2016-06-26 17:17 | NUR ---
Patient up on phone, set up with dinner tray. Denies needs.
--- NOTE | 2016-06-26 18:33 | NUR ---
Patient back to bed, chest and leg dressings changed. Patient tolerated well. RT in to do breathing treatment.
--- NOTE | 2016-06-26 19:30 | NUR ---
REC'D PT RESTING IN BED ON ROOM AIR, AWAKE, ALERT, ORIENTED X 4, LDLSCL DRSG CDI BOTH PORTS SALINE LOCKED, MIDSTERNAL DRSG CDI, PT RATING PAIN "3-4" ON 0-10 PAIN SCALE, PT INQUIRING WHEN PAIN MEDICATION IS AVAILABLE, SUBSTERNAL DRSG CDI, EXTERNAL P/M VVI 60 VMA 10, CM-SR @ 79, ABD SOFT BS X 4, RIGHT LEG DRSGS CDI, PT DENIES NEEDS, SR UP X 2, CALL LIGHT IN REACH, BED IN LOW POSITION.
--- NOTE | 2016-06-26 20:45 | NUR ---
EVENING MEDS GIVEN WITH SIPS OF DR. RIVERA, PT REQUESTING CHOCOLATE MILK, PROGRAM DIRECTOR GROUP WORK NOTIFIED.
--- NOTE | 2016-06-26 21:00 | NUR ---
NO VISITORS IN AT THIS TIME
--- NOTE | 2016-06-26 21:39 | NUR ---
PT UP TO BATHROOM, GAIT STEADY.
--- NOTE | 2016-06-26 21:45 | NUR ---
PT BACK TO BED, BLANKET REQUESTED FOR COMPLAINTS OF BEING COLD, BLANKET PROVIDED.
--- NOTE | 2016-06-26 23:15 | NUR ---
REASSESSMENT COMPLETED, PT AWAKE WATCHING TV, STATES "THAT OTHER PAIN MEDICINE WORKED BETTER" RATING PAIN "8" ON 0-10 PAIN SCALE, DRSGS REMAIN CDI, TEDS INTACT, PT CONTINUES TO REFUSE SCDS, CM-SR, BP STABLE.
--- NOTE | 2016-06-26 23:25 | NUR ---
TORADOL 30MG GIVEN SLOW IVP VIA LDLSCL, CHOCOLATE MILK PROVIDED ON REQUEST, PT DENIES FURTHER NEEDS.
[2016-06-27] VITALS (20 sets, daily range): BP systolic 89–133; BP diastolic 44–72
--- NOTE | 2016-06-27 01:00 | NUR ---
PT RESTING IN BED EYES CLOSED, RESPS EVEN AND UNLABORED, VSS, SR UP X 2, VISIBLE TO NURSES STATION, WILL CONT TO MONITOR FOR CHANGES.
--- NOTE | 2016-06-27 04:15 | NUR ---
PT ASSISTED UP TO WHEELCHAIR AND TAKEN TO RADIOLOGY FOR PA AND LATERAL.
--- NOTE | 2016-06-27 04:33 | NUR ---
PT RETURNED FROM RADIOLOGY, ASSISTED PT OVER TO RECLINER, PILLOWS AND BLANKET PROVIDED, PT REQUESTING COFFEE AND PAIN MEDICATION, REMINDED PT IT WAS A LITTLE TO EARLY FOR PAIN MEDICATION, VERBALIZES UNDERSTANDING, COFFEE AND ICE PROVIDED, CALL LIGHT IN REACH, VISIBLE TO NURSES STATION.
--- NOTE | 2016-06-27 04:55 | NUR ---
PT REQUESTING PAIN MEDICATION 30MG TORADOL GIVEN FOR PAIN, PT RATING PAIN "5" ON O-10 PAIN SCALE REMAINS IN CHAIR, PT CAUTIONED NOT TO GET OUT OF CHAIR WITHOUT CALLING FOR ASSISTANCE, PT VERBALIZES UNDERSTANDING.
--- NOTE | 2016-06-27 05:50 | NUR ---
AM LAB DRAWN FROM CVL AND SENT LAB, PT SITTING UP IN RECLINER WATCHING TV, SECOND CUP OF COFFEE PROVIDED ON REQUEST, PT APPEARS COMFORTABLE, WILL CONT TO MONITOR FOR CHANGES.
[2016-06-27 05:58] LABS: HEMATOCRIT 24.7 % (42.0-54.0); HEMOGLOBIN 8.2 g/dL (13.5-17.5); MCH 29.6 pg (26.0-34.0); MCHC 33.2 g/dL (31.0-37.0); MCV 89.2 fL (80.0-100.0); MEAN PLATELET VOLUME 9.4 fL (7.4-10.4); RBC 2.77 10x6/uL (4.20-6.10); RDW 13.8 % (11.5-14.5); WBC 6.5 10x3/uL (4.8-10.8)
--- NOTE | 2016-06-27 06:00 | NUR ---
NO VISITORS IN AT THIS TIME
[2016-06-27 06:24] LABS: ALBUMIN 2.6 g/dL (3.4-5.0); ALKALINE PHOSPHATASE 90 U/L (46-116); CALCIUM 8.4 mg/dL (8.5-10.1); CHLORIDE - SERUM 100 mmol/L (98-107); GLUCOSE 121 mg/dL (74-106); POTASSIUM - SERUM 3.9 mmol/L (3.5-5.1); PROTEIN - SERUM 5.8 g/dL (6.4-8.2); SODIUM 135 mmol/L (136-145)
[2016-06-27 06:31] LABS: ALT (SGPT) 32 U/L (10-68); CALC OSMOLALITY 273 mosm/kg (275-300); CREATININE - SERUM 0.9 mg/dL (0.6-1.3); UREA NITROGEN 21 mg/dL (7-18); eGFR NON AFRICAN AMERICAN > 90 mL/min (90-120)
--- NOTE | 2016-06-27 13:59 | NUR ---
Is the patient Alert and Oriented? Yes 0 * How many steps to enter\exit or inside your home? 1 0 * PCP DR. UCHE GREGORY 0 * Pharmacy [facility] 0 * Preadmission Environment Home with Family 0 * ADLs Independent 0 * Equipment None 0 * List name and contact numbers for known caregivers / representatives who currently or will assist patient after discharge: SPOUSE: CHARLOTTE [phone] 0 * Community resources currently utilized None 0 * Additional services required to return to the preadmission environment? No 0 * Can the patient safely return to the preadmission environment? Yes 0 * Has this patient been hospitalized within the prior 30 days at any hospital? No PATIENT IS AWAKE AND ALERT. HE STATES HE WAS INDEPENDENT PRIOR TO COMING INTO THE HOSPITAL. HE LIVES AT HOME WITH HIS AND GRANDCHILDREN. HIS , CHARLOTTE, WILL DRIVE HIM HOME AT DISCHARGE. PATIENT STATES HIS PCP IS DR. UCHE GREGORY. HE GETS HIS MEDS FROM [facility]. PATIENT DENIES USE OF ANY EQUIPMENT. HE STATES HE MAY HAVE HAD HOME HEALTH IN THE PAST BUT DOES NOT RECALL. HE STATES THERE IS ONLY 1 STEP TO ENTER HIS HOME. NO DISCHARGE NEEDS IDENTIFIED AT THIS TIME.
--- NOTE | 2016-06-27 19:30 | NUR ---
REPORT REC'D AND CARE ASSUMED, REC'D PT SITTING UP IN RECLINER ON ROOM AIR, AWAKE, ALERT, ORIENTED X 4, PT STATES " I AM READY TO GO HOME", RECONNECTED TO MONITORS AT THIS TIME, PT STATES " I WENT TO BATHROOM AND FORGOT TO HOOK IT BACK UP", MIDSTERNAL DRSG CDI, LDLSCL DRSG CDI BOTH PORTS SALINE LOCKED, SUBSTERNAL DRSG CDI, EXTERNAL P/M VVI 60 VMA 10, CM-SR @ 68, RIGHT LEG DRSGS CDI, PT MAEE, PT COMPLAINS OF ABDOMINAL PAIN AFTER HAVING BM, COMPLAINS OF PREVIOUS CT SITES HURTING, REQUESTING PAIN MEDICATION, CALL LIGHT IN REACH.
--- NOTE | 2016-06-27 20:08 | NUR ---
30MG TORADOL GIVEN FOR COMPLAINTS OF INCISIONAL DISCOMFORT, RATING "9" ON 0-10 PAIN SCALE, ICE WATER PROVIDED ON REQUEST
--- NOTE | 2016-06-27 21:10 | NUR ---
EVENING MEDS GIVEN, PT REPORTS PAIN IMPROVED RATING "3-4", MEDS TAKEN WITHOUT DIFFICULTY, VSS, NO VISITORS IN AT THIS TIME
--- NOTE | 2016-06-27 22:00 | NUR ---
PT ASSISTED BACK TO BED, EXTRA BLANKET PROVIDED, WILL MONITOR FOR CHANGES.
--- NOTE | 2016-06-27 23:30 | NUR ---
PT RESTING IN BED ON LEFT SIDE, VSS, REASSESSMENT COMPELTED, DRSGS REMAIN CDI, PT DENIES NEEDS, SR UP X 2, BED IN LOW POSITION, CALL LIGHT IN REACH
[2016-06-28] VITALS (10 sets, daily range): BP systolic 101–123; BP diastolic 54–65
--- NOTE | 2016-06-28 02:00 | NUR ---
NO CHANGES IN STATUS AT THIS TIME.
--- NOTE | 2016-06-28 04:05 | NUR ---
PT TAKEN TO RADIOLOGY FOR PA AND LATERAL
--- NOTE | 2016-06-28 04:20 | NUR ---
PT CONTINUES TO COMPLAIN OF STOMACH PAIN AND CRAMPING, 10MG REGLAN AND 30MG TORADOL GIVEN SLOW IVP, PT UP IN RECLINER WATCHING TV, DENIES FURTHER NEEDS, CALL LIGHT IN REACH.
--- NOTE | 2016-06-28 05:15 | NUR ---
PT ASSISTED BACK TO BED UNTIL BREAKFAST, VSS, WILL MONITOR FOR CHANGES.
--- NOTE | 2016-06-28 06:00 | NUR ---
AM LAB DRAWN FROM CV AND SENT TO LAB, PT RESTING IN BED EYES CLOSED, RESP EVEN AND UNLABORED, BED IN LOW POSITION, SR UP X 2, CALL LIGHT IN REACH.
[2016-06-28 06:18] LABS: HEMATOCRIT 22.7 % (42.0-54.0); HEMOGLOBIN 7.7 g/dL (13.5-17.5); MCH 30.4 pg (26.0-34.0); MCHC 33.9 g/dL (31.0-37.0); MCV 89.7 fL (80.0-100.0); MEAN PLATELET VOLUME 9.1 fL (7.4-10.4); RBC 2.53 10x6/uL (4.20-6.10); RDW 14.1 % (11.5-14.5); WBC 5.9 10x3/uL (4.8-10.8)
[2016-06-28 06:39] LABS: ALBUMIN 2.5 g/dL (3.4-5.0); ALKALINE PHOSPHATASE 108 U/L (46-116); ALT (SGPT) 38 U/L (10-68); BILIRUBIN - TOTAL 0.99 mg/dL (0.2-1.3); CALC OSMOLALITY 275 mosm/kg (275-300); CALCIUM 8.5 mg/dL (8.5-10.1); CARBON DIOXIDE 27.9 mmol/L (21.0-32.0); CHLORIDE - SERUM 102 mmol/L (98-107); CREATININE - SERUM 0.9 mg/dL (0.6-1.3); GLUCOSE 107 mg/dL (74-106); PROTEIN - SERUM 5.7 g/dL (6.4-8.2); SODIUM 137 mmol/L (136-145); UREA NITROGEN 19 mg/dL (7-18); eGFR NON AFRICAN AMERICAN > 90 mL/min (90-120)
--- NOTE | 2016-06-28 07:00 | NUR ---
PT REPORT REC'D, PT CARE ASSUMED. PT AAOX4, SITTING UP IN BED, NO C/O PAIN. VSS. LEFT SUBCLAVIAN CVL S/L'ED, DRESSING CDI. PT UP TO BATHROOM NEEDED. MIDSTERNAL INCISION, DRESSING CDI, SUBSTERANL TPM WIRES SECURED TO CHEST. RIGHT LEG HARVEST SITE DRESSINGS CDI. SHIFT ASSESSMENT COMPLETED, SEE FLOW SHEET. ROOM FREE OF CLUTTER, CALL LIGHT IN REACH. WILL CONTINUE TO MONITOR PT.
[2016-06-28 08:14] LABS: HEMATOCRIT 25.2 % (42.0-54.0); HEMOGLOBIN 8.5 g/dL (13.5-17.5)
--- NOTE | 2016-06-28 09:00 | NUR ---
PT FAMILY AT THE BEDSIDE, ALL QUESTIONS ANSWERED,VSS, WILL CONTINUE TO MONITOR PT.
--- NOTE | 2016-06-28 09:40 | NUR ---
JYOTI CARROLL RN AT THE BEDSIDE
[2016-06-28] MEDS ORDERED: LOPRESSOR25 MG PO (09:52)
[2016-06-28] MEDS ORDERED: ASPIRIN81 MG PO (09:52)
[2016-06-28] MEDS ORDERED: HEMOCYTE PLUS C1 CAP PO (09:52)
--- NOTE | 2016-06-28 10:16 | NUR ---
Nutrition Follow Up: Chart reviewed. Pt is eating 77% meal avg on an AHA diet. Labs reviewed. Meds noted including Albumin. Wt loss since admit noted. +BM 06/26/16. Pt with good po intake at this time. Rec continue current diet. RD will continue to monitor pt progress.
--- NOTE | 2016-06-30 16:36 | TEE ---
PATIENT:RANDA ROSENBAUM JR MEDICAL RECORD: [id number] LOCATION:[place] [address] AGE OF PATIENT: 55 ADMISSION DATE: 06/23/16 SEX: M REFERRING PHYSICIAN: INTERPRETING PHYSICIAN: JOANN OH MD TRANSESOPHAGEAL ECHOCARDIOGRAM RAFFI CHARGE Y INDICATIONS: CABG PREMEDICATIONS: PATIENT'S RESPONSE PROCEDURE DOPPLER MEASUREMENTS: LVIT LA PA RA LVOT RVOT Asc. Ao AV Gradient Peak AV Mean AV Area MV Gradient Peak MV Mean MV Area INTERPRETATION: LVd: 4.8 cm LVs: 4.0 cm Doppler: 2-D: COLOR FLOW DOPPLER NORMAL SALINE STUDY: MISCELLANOUS: DIAGNOSIS: PLAN: Oil Agent:1 Dr. Oh C D Still Operator: 1 SRAA DYE COMMENTS: DATE OF SERVICE: 06/23/2016 Transesophageal echo evaluation of valvular structures during bypass surgery. FINDINGS: 1. Left ventricular chamber size is mildly dilated. Left ventricular systolic function is moderately reduced, overall ejection fraction is 30% to 35%. 2. Left atrium, right atrium, and right ventricular chamber sizes are mildly dilated. TRANSESOPHAGEAL ECHOCARDIOGRAM REPORT [id number] RANDA ROSENBAUM 3. Valvular structures have normal structure and motion. 4. Doppler interrogation only reveals mild mitral regurgitation. No other valvular insufficiency or stenosis. 5. No evidence of pericardial effusion or left ventricular thrombus. TRANSINT:[id number] Voice Confirmation ID: [id number] DOCUMENT ID: [id number] at [id number] CC: [id number] DICTATION DATE: 06/27/16 1043 CUSTOMER SERVICE TECHNICIAN: 06/28/16 0051 DIS IN 06/28/16 [facility] [address] [place] [id number]
== END 2016-06-28 10:45 | disposition home or self-care (01) | DRG 236 ==
LOC: D.CVICU 05:22 → D.SDCHOLD 05:22 → D.CVICU 13:52
PROVIDERS: ADMIT Internal Medicine Cardiovascular Disease
PROC: 021109W Bypass Coronary Artery, Two Arteries from Aorta with Autologous Venous Tissue, Open Approach (ICD-10-PCS; 2016-06-23)
PROC: 06BP0ZZ Excision of Right Saphenous Vein, Open Approach (ICD-10-PCS; 2016-06-23)
PROC: 5A1221Z Performance of Cardiac Output, Continuous (ICD-10-PCS; 2016-06-23)
PROC: 02100AC Bypass Coronary Artery, One Artery from Thoracic Artery with Autologous Arterial Tissue, Open Approach (ICD-10-PCS; principal; 2016-06-23 07:30)
DX: I25.110 Atherosclerotic heart disease of native coronary artery with unstable angina pectoris (principal); T82.855A Stenosis of coronary artery stent, initial encounter; I10 Essential (primary) hypertension; E78.5 Hyperlipidemia, unspecified; D50.0 Iron deficiency anemia secondary to blood loss (chronic); M54.5 Low back pain; Z72.0 Tobacco use

== ENCOUNTER → 2016-07-14 09:48 | Outpatient (CLI) | payer OTHER ==
[2016-06-23 15:20] VITALS: BMI 23.9
[~2016-07-14 09:48] MED LIST changes: +ASPIRIN81 MG PO; +ATIVAN1 MG PO; +HEMOCYTE PLUS C1 CAP PO; +LOPRESSOR25 MG PO
[2016-07-14 10:10] LABS: HEMATOCRIT 30.6 % (42.0-54.0); HEMOGLOBIN 9.5 g/dL (13.5-17.5); MCH 29.1 pg (26.0-34.0); MCV 93.6 fL (80.0-100.0); MEAN PLATELET VOLUME 8.3 fL (7.4-10.4); RBC 3.27 10x6/uL (4.20-6.10); RDW 14.5 % (11.5-14.5); WBC 7.9 10x3/uL (4.8-10.8)
[2016-07-14 10:23] LABS: CALC OSMOLALITY 276 mosm/kg (275-300); CALCIUM 8.5 mg/dL (8.5-10.1); CHLORIDE - SERUM 101 mmol/L (98-107); GLUCOSE 111 mg/dL (74-106); POTASSIUM - SERUM 4.3 mmol/L (3.5-5.1); SODIUM 138 mmol/L (136-145); UREA NITROGEN 12 mg/dL (7-18); eGFR NON AFRICAN AMERICAN 82 mL/min (90-120)
== END | disposition home or self-care (01) ==
LOC: D.LAB 09:00 → D.RAD 10:00
PROVIDERS: Internal Medicine Cardiovascular Disease
DX: D64.9 Anemia, unspecified (principal); J91.8 Pleural effusion in other conditions classified elsewhere

== ENCOUNTER 2016-10-08 09:02 | Emergency (ER) | payer OTHER ==
[2016-06-23 15:20] VITALS: BMI 23.9
[2016-10-08 09:42] LABS: BASOPHILS 0.4 % (0-2); EOSINOPHILS 0.2 % (0-7); HEMATOCRIT 35.6 % (42.0-54.0); HEMOGLOBIN 11.9 g/dL (13.5-17.5); LYMPHOCYTES 37.7 % (15-50); MCH 29.4 pg (26.0-34.0); MCHC 33.4 g/dL (31.0-37.0); MCV 87.9 fL (80.0-100.0); MEAN PLATELET VOLUME 8.4 fL (7.4-10.4); MONOCYTES 8.7 % (2-11); RBC 4.05 10x6/uL (4.20-6.10); RDW 15.9 % (11.5-14.5); WBC 5.5 10x3/uL (4.8-10.8)
[2016-10-08 09:45] LABS: PLATELET COUNT 185 10x3/uL (130-400)
[2016-10-08 09:57] LABS: ALBUMIN 3.6 g/dL (3.4-5.0); ALKALINE PHOSPHATASE 94 U/L (46-116); ALT (SGPT) 24 U/L (10-68); BILIRUBIN - TOTAL 0.72 mg/dL (0.2-1.3); CALC OSMOLALITY 273 mosm/kg (275-300); CALCIUM 8.7 mg/dL (8.5-10.1); CARBON DIOXIDE 31.2 mmol/L (21.0-32.0); CHLORIDE - SERUM 101 mmol/L (98-107); CREATININE - SERUM 0.9 mg/dL (0.6-1.3); GLUCOSE 107 mg/dL (74-106); POTASSIUM - SERUM 3.8 mmol/L (3.5-5.1); PROTEIN - SERUM 6.9 g/dL (6.4-8.2); SODIUM 137 mmol/L (136-145); UREA NITROGEN 12 mg/dL (7-18); eGFR NON AFRICAN AMERICAN > 90 mL/min (90-120)
[2016-10-08 10:17] LABS: APPEARANCE CLEAR (CLEAR); BILIRUBIN NEGATIVE (NEGATIVE); COLOR STRAW (YELLOW); GLUCOSE NEGATIVE (NEGATIVE); KETONE NEGATIVE (NEGATIVE); LEUKOCYTE ESTERASE NEGATIVE (NEGATIVE); NITRITE NEGATIVE (NEGATIVE); PH 5.5 (5.0-6.0); PROTEIN NEGATIVE (NEGATIVE); SPECIFIC GRAVITY 1.005 (1.005-1.020); UROBILINOGEN NORMAL (NORMAL)
[2016-10-08 10:21] LABS: BACTERIA FEW /hpf (NONE SEEN); EPITHELIAL CELLS RARE /hpf (0-5); RED CELLS - URINE 0-5 /hpf (0-5); WHITE CELLS - URINE RARE /hpf (0-5)
== END 2016-10-08 16:48 | disposition home or self-care (01) ==
LOC: D.ER 09:02
PROVIDERS: Emergency Medicine
DX: R41.0 Disorientation, unspecified (principal); R41.3 Other amnesia; I25.10 Atherosclerotic heart disease of native coronary artery without angina pectoris; I10 Essential (primary) hypertension; F17.200 Nicotine dependence, unspecified, uncomplicated

== ENCOUNTER 2017-09-10 16:57 | Emergency (ER) | payer MEDICAID ==
[~2017-09-10] VITALS: Ht 175.3 cm; Wt 81.8 kg
[2017-09-10 17:11] VITALS: Ht 175.3 cm; Wt 81.8 kg
[2017-09-10 17:26] LABS: BASOPHILS 0.4 % (0-2); EOSINOPHILS 0.4 % (0-7); HEMATOCRIT 34.1 % (42.0-54.0); HEMOGLOBIN 11.7 g/dL (13.5-17.5); IMMATURE GRANULOCYTES 0.7 % (0-5); LYMPHOCYTES 30.3 % (15-50); MCH 30.2 pg (26.0-34.0); MCHC 34.3 g/dL (31.0-37.0); MCV 88.1 fL (80.0-100.0); MEAN PLATELET VOLUME 8.1 fL (7.4-10.4); MONOCYTES 9.9 % (2-11); NEUTROPHILS 58.3 % (40-80); PLATELET COUNT 196 10x3/uL (130-400); RBC 3.87 10x6/uL (4.20-6.10); WBC 5.6 10x3/uL (4.8-10.8)
[2017-09-10 17:42] LABS: ALBUMIN 3.1 g/dL (3.4-5.0); ALKALINE PHOSPHATASE 96 U/L (46-116); ALT (SGPT) 19 U/L (10-68); BILIRUBIN - TOTAL 0.29 mg/dL (0.2-1.3); CALC OSMOLALITY 279 mosm/kg (275-300); CALCIUM 8.7 mg/dL (8.5-10.1); CARBON DIOXIDE 29.1 mmol/L (21.0-32.0); CHLORIDE - SERUM 103 mmol/L (98-107); CREATININE - SERUM 0.9 mg/dL (0.6-1.3); GLUCOSE 121 mg/dL (74-106); POTASSIUM - SERUM 4.1 mmol/L (3.5-5.1); PROTEIN - SERUM 7.1 g/dL (6.4-8.2); SODIUM 140 mmol/L (136-145); UREA NITROGEN 12 mg/dL (7-18); eGFR NON AFRICAN AMERICAN > 90 mL/min (90-120)
[2017-09-10 17:51] LABS: CKMB 0.8 U/L (0.0-3.6); CREATINE KINASE 161 UL (21-232)
[2017-09-10 17:52] LABS: TROPONIN-I < 0.017 ng/mL (0.000-0.060)
[2017-09-10 18:38] LABS: AMYLASE - SERUM 33 U/L (25-115); LIPASE 83 U/L (73-393)
[2017-09-10] MEDS ORDERED: LEVAQUIN500 MG PO (19:21)
[2017-09-10 19:31] VITALS: BP 137/87
== END 2017-09-10 19:31 | disposition home or self-care (01) ==
LOC: D.ER 16:57
PROVIDERS: Family Medicine
DX: J18.9 Pneumonia, unspecified organism (principal); F17.200 Nicotine dependence, unspecified, uncomplicated

== ENCOUNTER 2017-10-23 10:59 | Emergency (ER) | payer MEDICAID ==
[~2017-10-23] VITALS: Ht 175.3 cm; Wt 83.2 kg
[~2017-10-23 10:59] MED LIST changes: +LEVAQUIN500 MG PO
[2017-10-23 11:08] VITALS: BP 122/53; Ht 175.3 cm; Wt 83.2 kg
[2017-10-23] MEDS ORDERED: SUBOXONE 2 MG-01 TAB SL (11:09)
[2017-10-23 13:11] LABS: BASOPHILS 0.1 % (0-2); EOSINOPHILS 0 % (0-7); HEMATOCRIT 35.9 % (42.0-54.0); HEMOGLOBIN 12.2 g/dL (13.5-17.5); IMMATURE GRANULOCYTES 0.1 % (0-5); LYMPHOCYTES 11.6 % (15-50); MCH 30.2 pg (26.0-34.0); MCV 88.9 fL (80.0-100.0); MEAN PLATELET VOLUME 8.5 fL (7.4-10.4); MONOCYTES 8.8 % (2-11); NEUTROPHILS 79.4 % (40-80); PLATELET COUNT 187 10x3/uL (130-400); RBC 4.04 10x6/uL (4.20-6.10); RDW 12.6 % (11.5-14.5); WBC 10.5 10x3/uL (4.8-10.8)
[2017-10-23 13:32] LABS: ALBUMIN 3.2 g/dL (3.4-5.0); ALKALINE PHOSPHATASE 93 U/L (46-116); ALT (SGPT) 22 U/L (10-68); BILIRUBIN - TOTAL 0.72 mg/dL (0.2-1.3); CALC OSMOLALITY 275 mosm/kg (275-300); CALCIUM 8.1 mg/dL (8.5-10.1); CARBON DIOXIDE 29.8 mmol/L (21.0-32.0); CHLORIDE - SERUM 104 mmol/L (98-107); GLUCOSE 105 mg/dL (74-106); POTASSIUM - SERUM 4.1 mmol/L (3.5-5.1); PROTEIN - SERUM 6.3 g/dL (6.4-8.2); SODIUM 138 mmol/L (136-145); UREA NITROGEN 13 mg/dL (7-18); eGFR NON AFRICAN AMERICAN 81 mL/min (90-120)
[2017-10-23] MEDS ORDERED: MEDROL DOSE PACK4 MG PO (14:41)
[2017-10-23] MEDS ORDERED: LEVAQUIN750 MG PO (14:41)
== END 2017-10-23 15:13 | disposition home or self-care (01) ==
LOC: D.ER 10:59
PROVIDERS: Family Medicine
DX: J40 Bronchitis, not specified as acute or chronic (principal); S20.219A Contusion of unspecified front wall of thorax, initial encounter; V85.5XXA Driver of special construction vehicle injured in nontraffic accident, initial encounter; Y93.89 Activity, other specified; Y92.410 Unspecified street and highway as the place of occurrence of the external cause; I10 Essential (primary) hypertension; F17.200 Nicotine dependence, unspecified, uncomplicated

== ENCOUNTER 2018-07-21 18:07 | Emergency (ER) | payer MEDICAID ==
[~2018-07-21 18:07] MED LIST changes: +LEVAQUIN750 MG PO; +MEDROL DOSE PACK4 MG PO; +SUBOXONE 2 MG-01 TAB SL
[2018-07-21 18:14] VITALS: BMI 23.8
[2018-07-21] MEDS ORDERED: NAPROSYN500 MG PO (19:36)
[2018-07-21 20:14] VITALS: BP 103/69
== END 2018-07-21 20:14 | disposition home or self-care (01) ==
LOC: D.ER 18:07
DX: S20.219A Contusion of unspecified front wall of thorax, initial encounter (principal); W50.0XXA Accidental hit or strike by another person, initial encounter; Y93.89 Activity, other specified; Y92.89 Other specified places as the place of occurrence of the external cause

== ENCOUNTER → 2019-04-17 07:47 | Outpatient (CLI) | payer BC ==
[~2019-04-17 07:47] MED LIST changes: +NAPROSYN500 MG PO
== END | disposition home or self-care (01) ==
LOC: D.HCCECHO 07:47
PROVIDERS: ATTEND Internal Medicine Cardiovascular Disease
DX: I25.810 Atherosclerosis of coronary artery bypass graft(s) without angina pectoris (principal)

== ENCOUNTER 2019-04-20 11:47 | Inpatient (IN) | payer MEDICAID ==
[~2019-04-20] VITALS: Ht 175.3 cm; Wt 75.3 kg
--- NOTE | ~2019-04-20 | HEMODYNAMI ---
PATIENT:RANDA ROSENBAUM JR MEDICAL RECORD: [id number] : 58 LOCATION:[facility], [place] D.[address] [facility]# [id number] ADMISSION DATE: 04/20/19 Generatedon:04/21/201915:57 Patient name: RANDA ROSENBAUM Patient #: [id number] : 1960 Date of study: 04/21/2019 Page: Of Hemodynamic Procedure Report Patient Data Patient Demographics Procedure consent was obtained First Name: RANDA Gender: Male Last Name: ILSA Suffix: Jr Nance Initial: CARY : 1960 Patient #: [id number] Age: 58 year(s) Race: SSN: [id number] Additional ID: [id number] Contact details Address: [address] [place] [address] [address] State: [place] City: [place] Zip code: [address] Past Medical History Allergies: No known allergies Admission Admission Data Admission Date: 04/20/2019 Admission Time: 13:51 Arrival Date: 04/21/2019 Arrival Time: 0:00 Admit Source: Other Insurance Payor: Private Room #: D.2120 health insurance [facility] #: [id number] Height (in.): 69 BSA: 1.84 (m2) Height (cm.): 175.26 BMI: 22.49 (kg/m2) Weight (lbs.): 152.32 Weight (kg.): 69.09 Lab Results Lab Result Date: 04/21/2019 Lab Result Time: 0:00 Biochemistry Name Units Result Min Max BUN mg/dl 18 --(---*)-- 7 18 CK-MB ng/ml 0.7 --(*---)-- 0 3.6 Creatinine mg/dl 1 --(--*-)-- 0.6 1.3 eGFR ml/min 81 *-(----)-- 90 120 NONAFRICAN Troponin l ng/ml 0.017 --(-*--)-- 0 0.06 CBC Name Units Result Min Max Hematocrit % 33.9 *-(----)-- 42 54 Hemoglobin g/dl 11.2 *-(----)-- 13.5 17.5 Procedure Procedure Types Cath Procedure Diagnostic Procedure C [facility] w/Coronaries w/Grafts Sedation Charges Moderate Sedation up to 30 minutes Procedure Description Procedure Date Procedure Date: 04/21/2019 Procedure Start Time: 15:35 Procedure End Time: 15:55 Procedure Staff Name Function Freddy Giordano MD Performing Physician Saen Stinson RN Nurse Carmen Fonseca RT Monitor Mag Encarnacion RT Scrub Procedure Data Cath Procedure Fluoroscopy Diagnostic fluoroscopy Total fluoroscopy Time: 5.8 time: 5.8 min min Diagnostic fluoroscopy Total fluoroscopy dose: 627 dose: 627 mGy mGy Contrast Material Contrast Material Type Amount (ml) Isovue 300 96 Entry Location Entry Primary Successful Side Size Upsize Upsize Entry Closure Succes sful Closure Location (Fr) 1 (Fr) 2 (Fr) Remarks Device Remarks Femoral Right 5 Fr Exoseal artery Estimated blood loss: 5 ml Diagnostic catheters Device Type Used For End Catheter Placement MULTIPACK JL 4.0 5Fr Left Coronary catheter Angiography MULTIPACK 3DRC 5Fr Right Coronary catheter Angiography DIAGNOSTIC AR MOD 5Fr Multi-vessel Catheter ([id number]) Angiography DIAGNOSTIC LCB 5Fr Multi-vessel catheter ([id number]) Angiography DIAGNOSTIC IM 5Fr SVG Angiography catheter ([id number]) MULTIPACK Pigtail 5 Fr LV Angiography catheter Procedure Complications No complications Procedure Medications Medication Administration Route Dosage Oxygen etCO2 Nasal cannula 2 l/min Lidocaine 2% added to field 20 Heparin Flush Bag added to field 2 bags (1000units/500ml NS) 0.9% NaCl I.V. 100 ml/hr Versed I.V. 2 mg Fentanyl I.V. 25 mcg Versed I.V. 2 mg Fentanyl I.V. 25 mcg Hemodynamics Rest BSA: 1.84 (m2) HGB: 11.2 (g/dl) O2 Consumption: Estimated: 194.25 (ml/min) O2 Co nsumption indexed: Estimated:105.57 (ml/min/m) Heart Rate: 38 (bpm) Pressure Samples Time Site Value (mmHg) Purpose Heart Use Rate(bpm) 15:51 LV 145/2,24 Snapshot 43 Gradients Valve Time Site Site Mean SEP/DFP Peak To Heart Use 1 2 (mmHg) (sec/min) Peak Rate (mmHg) (bpm) Aortic 15:51 LV AO 43 Snapshots Pre Cath Intra NCS Post Cath Vital Signs Time Heart Resp SPO2 etCO2 NIBP (mmHg) Rhythm Pain Sedation Rate (ipm) (%) (mmHg) Status Level (bpm) 15:26:02 37 16 99 21.5 163/102(113) SB 0 (11) 10(A) , No pain 15:30:31 36 10 98 28.2 155/72(127) SB 0 (11) 10(A) , No pain 15:34:47 39 18 97 27.4 150/76(128) SB 0 (11) 10(A) , No pain 15:39:09 38 30 98 33.4 144/71(115) SB 0 (11) 10(A) , No pain 15:44:41 41 20 98 26.6 158/74(128) SB 0 (11) 10(A) , No pain 15:49:58 39 16 97 33.4 148/66(120) SB 0 (11) 10(A) , No pain 15:55:22 42 33 98 29.6 154/71(126) SB 0 (11) 10(A) , No pain Medications Time Medication Route Dose Verified Delivered Reason Notes Eff ectiveness by by 15:25:59 Oxygen etCO2 2 Freddy Buffie used for Nasal l/min Pasquale Stinson RN procedure cannula 15:26:07 Lidocaine 2% added 20ml Freddy Freddy for local to vial Pasquale Giordano MD anesthetic field 15:26:12 Heparin Flush added 2 Freddy Freddy used for Bag to bags Pasquale Giordano MD procedure (1000units/500ml field NS) 15:26:20 0.9% NaCl I.V. 100 Freddy Buffie Per ml/hr Pasquale Stinson RN physician 15:28:00 Fentanyl I.V. 25 Freddy Buffie for mcg Pasquale Stinson RN sedation 15:28:53 Versed I.V. 2 mg Freddy Buffie for Pasquale Stinson RN sedation 15:37:13 Versed I.V. 2 mg Freddy Buffie for Pasquale Stinson RN sedation 15:37:19 Fentanyl I.V. 25 Freddy Buffie for mcg Giordano MD Stinson RN sedation Procedure Log Time Note 14:50:59 Sean Stinson RN sent for patient. Start room use. 14:53:12 Informed consent obtained and on chart 14:54:51 Patient allergic to No known allergies 14:54:54 Arrival Date: 04/21/2019 12:00:00 AM 14:54:55 Admit Source: Other 14:54:58 Insurance Payor : Private health insurance 14:55:15 Patient Height : 69 inches 14:55:21 Patient Weight : 152.32 lbs 14:56:01 Lab Result : Creatinine 1 mg/dl 14:56: Lab Result : CK-MB 0.7 ng/ml 14:56: Lab Result : BUN 18 mg/dl 14:56: Lab Result : Hematocrit 33.9 % 14:56: Lab Result : Troponin l 0.017 ng/ml 14:56: Lab Result : eGFR NONAFRICAN 81 ml/min 14:56:01 Lab Result : Hemoglobin 11.2 g/dl 14:56:07 Diagnostic Cath Status : Urgent 14:56:18 Time tracking: Regular hours (M-F 7:00 - 5:00) 14:56:23 Plan of Care:Hemodynamics will remain stable., Cardiac rhythm will remain stable., Comfort level will be maintained., Respiratory function will remain adequate., Patient/ family verbilizes understanding of procedure., Procedure tolerated without complication., Recovers from procedure without complications.. 14:56:30 ACC Patient presents with Stable Angina CCS Anginal Class 2--Slight limitation of ordinary activity. 14:56:34 Procedure Status Urgent Heart Cath (IP). 14:56:46 Procedure type changed to Cath procedure, Diagnostic procedure, LHC, LHC w/Coronaries w/Grafts, Sedation Charges, Moderate Sedation up to 30 minutes 14:57:02 H&P Date Dictated: 04/20/2019 Within 30 days and on chart.. 14:57:09 Lab results completed and on chart. 14:57:32 Stress Test: yes; abnormal INFERIOR AND APICAL 14:57:36 Alarms reviewed by R. N. 14:57:37 Sharps counted by scrub and verified by R.N. 15:02:21 2) 60-89 Mildly reduced kidney function, and other findings (as for stage 1) point to kidney disease. 15:02:25 Maximum allowable contrast dose (3.7 X eGFR X 0.75)225 ml. 15::55 Patient received from Pre/Post Procedure Room to CCL 1 Alert and oriented. Tansferred to table in Supine position. 15::56 Warm blankets applied, and vicenta hugger turned on for patient comfort. 15::57 Correct patient and procedure confirmed by team. 15::57 ECG and BP/O2 sat monitors applied to patient. :: Baseline sample Acquired. 15:: Vital chart was started 15::53 Rhythm: sinus bradycardia 15::55 Full Disclosure recording started 15::56 Pre-procedure instructions explained to patient. 15::56 Pre-op teaching completed and patient verbalized understanding. 15::57 Family in waiting room. 15::58 Patient NPO since Midnight. 15::59 Is the patient allergic to Iodine/contrast media? No. 15:25:02 Was the patient premedicated? Yes 15:25:03 Is patient on blood thinner?No 15:25:06 Patient diabetic? No. 15:25:27 Previous problem with sedation/anesthesia? No ? 15:25:30 Snore? Yes 15:25:39 Sleep apnea? No 15:25:40 Deviated septum? No 15:25:41 Opens mouth fully? Yes 15:25:59 Oxygen 2 l/min etCO2 Nasal cannula was administered by Sean Stinson RN; used for procedure; Verbal order read back and verified. 15:26:07 Lidocaine 2% 20ml vial added to field was administered by Freddy Giordano MD; for local anesthetic; Verbal order read back and verified. 15:26:12 Heparin Flush Bag (1000units/500ml NS) 2 bags added to field was administered by Freddy Giordano MD; used for procedure; Verbal order read back and verified. 15:26:20 0.9% NaCl 100 ml/hr I.V. was administered by Sean Stinson RN; Per physician; Verbal order read back and verified. 15:26:42 Sticks out tongue? Yes 15:26:44 Airway obstruction? No ? 15:26:46 Dentures? No ? 15:26:50 Pre procedure: right dorsailis pedis pulse 2+ Normal; easily identifiable; not easily obliterated 15:26:55 Pre procedure: left dorsailis pedis pulse 2+ Normal; easily identifiable; not easily obliterated 15:27:02 Right groin area was prepped with chlora-prep and draped in sterile fashion 15::04 Physician arrived 15::04 --------ALL STOP TIME OUT------ 15:27:05 Final Timeout: patient, procedure, and site verified with staff and physician. All members of the team are in agreement. 15::08 Right groin site verified by team. 15:27:12 Fire Safety Assessment: A--An alcohol-based skin anteseptic being used preoperatively., C--Open oxygen or nitrous oxide is being used., D--An ESU, laser, or fiber-optic light is being used. 15:27:16 Physical assessment completed. ASA score P 2 - A patient with mild systemic disease as per Freddy Giordano MD. 15:28:00 Fentanyl 25 mcg I.V. was administered by Sean Stinson RN; for sedation; Verbal order read back and verified. 15:28:53 Versed 2 mg I.V. was administered by Sean Stinson RN; for sedation; Verbal order read back and verified. 15:29:15 Sedation plan: IV Moderate Sedation Medication:Versed, Fentanyl 15:29:22 Use device set Femoral Dx 15:29:23 ACIST Syringe (61081) opened to sterile field. 15:29:23 Bag Decanter (2002S) opened to sterile field. 15:29:24 Medline Cath Pack ([id number]) opened to sterile field. 15:29:25 ACIST Hand Control (23989) opened to sterile field. 15:29:25 ACIST Manifold (95579) opened to sterile field. 15:29:26 DIAGNOSTIC Multipack 5Fr catheter set (GU4696) opened to sterile field. 15:29:26 Tegaderm 4 x 4 (1626W) opened to sterile field. 15:29:27 SHEATH 5FR [place] (KPQ183) opened to sterile field. 15:29:28 EMERALD Guide Wire (205-215) opened to sterile field. 15:35:06 Procedure started. 15:35:09 Local anesthetic to right femoral artery with Lidocaine 2% by Freddy Giordano MD.INITIAL ACCESS ONLY 15:35:30 A 5 Fr sheath was inserted into the Right Femoral artery 15:35:37 Zero performed for pressure channel P1 15:35:42 Zero performed for pressure channel P1 15:35:49 Zero performed for pressure channel P1 15:36:11 Zero performed for pressure channel P1 15:36:23 Zero performed for pressure channel P1 15:36:39 A MULTIPACK JL 4.0 5Fr catheter was advanced over the wire and used for Left Coronary Angiography. 15:37:13 Versed 2 mg I.V. was administered by Sean Stinson RN; for sedation; Verbal order read back and verified. 15:37:19 Fentanyl 25 mcg I.V. was administered by Sean Stinson RN; for sedation; Verbal order read back and verified. 15:38:36 LCA angiography performed. 15:38:39 Injector settings: Ml/sec: 3, Volume: 6, 15:39:24 Catheter removed. 15:39:35 A MULTIPACK 3DRC 5Fr catheter was advanced over the wire and used for Right Coronary Angiography. 15:40:30 RCA angiography performed. 15:40:33 Injector settings: Ml/sec: 3, Volume: 6, 15:41:02 Catheter removed. 15:41:55 A DIAGNOSTIC AR MOD 5Fr Catheter ([id number]) was advanced over the wire and used for Multi-vessel Angiography. 15:42:27 SVG to RCA angiography performed. 15:43:59 Catheter removed. 15:44:51 A DIAGNOSTIC LCB 5Fr catheter ([id number]) was advanced over the wire and used for Multi-vessel Angiography. 15:46:41 SVG to Circ angiography performed. 15:46:52 Catheter removed. 15:47:04 A DIAGNOSTIC IM 5Fr catheter ([id number]) was advanced over the wire and used for SVG Angiography. 15:48:30 PEREYRA to LAD angiography performed. 15:49:00 Injector settings: Ml/sec: 3, Volume: 6, 15:49:02 Catheter removed. 15:49:05 EXOSEAL 5Fr (EX500) opened to sterile field. 15:49:16 A MULTIPACK Pigtail 5 Fr catheter was advanced over the wire and used for LV Angiography. 15:51:16 LV hemodynamics recorded. 15:51:17 LV gram done using FELIX 15:51:21 Injector settings: Ml/sec: 5, Volume: 15, 15:51:31 EF : 25 % 15:51:50 Catheter removed. 15:53:34 Sheath removed intact; hemostasis achieved with Exoseal to the Right Femoral artery. 15:53:37 Procedure ended.(Physican Out) 15:54:10 Fluoroscopy time 05.80 minutes. 15:54:14 Flurop Dose total: 627 15:54:14 Fluoroscopy dose: 627 mGy 15:54:21 Dose Area Product 48510 mGy/cm. 15:54:36 Contrast amount:Isovue 300 96ml. 15:54:42 Maximum allowable dose exceeded? Yes. 15:54:44 Insertion/operative site no bleeding no hematoma. 15:54:47 Post-op/insertion site Right Femoral artery dressed using a 4 x 4 and Tegaderm. 15:54:50 Post right femoral artery:stable 15:54:52 Post Procedure Pulses reassessed and unchanged 15:54:54 Post procedure rhythm: unchanged. 15:54:57 Estimated blood loss: 5 ml 15:54:59 Post procedure instruction explained to patient.Patient verbalizes understanding. 15:54:59 Patient needs reinforcement of post procedure teaching. 15:55:01 Procedure and supply charges have been captured, reviewed, submitted and are correct. 15:55:05 Procedure Complication : No complications 15:55:07 Vital chart was stopped 15:55:32 [facility] Findings: MVD- MD will discuss options w/ pt 15:55:34 Operative report dictated upon procedure completion. 15:55:35 See physician's report for complete and final results. 15:55:37 Report given to [facility] II. 15:55:40 Patient transfered to Med II with Stretcher. 15:55:41 Procedure ended. 15:55:41 Full Disclosure recording stopped 15:55:45 End room use (Document Last) Device Usage Item Name Manufacture Quantity Catalog Hospital Part Current Minimal L ot# / Number Charge Number Stock Stock Serial# Code ACIST Acist 1 81084 439483 639313 047342 20 Syringe Medical (21768) Systems Inc Bag Microtek 1 018572 03284 024177 5 Decanter Medical Inc. () Medline Medline 1 [id number] 714154 19813 290300 5 Cath Pack ([id number]) ACIST Hand Acist 1 61636 081216 669670 434766 5 Control Medical (78405) Systems Inc ACIST Acist 1 22168 714466 416949 342362 5 Manifold Medical (67283) Systems Inc DIAGNOSTIC Cardinal 1 [id number] 524435 96215 123277 30 Multipack Health 5Fr catheter set (VB4383) Tegaderm 4 3M 1 1626W 345845 127562 215469 5 x 4 (1626W) SHEATH 5FR Terumo 1 ONT998 704706 382931 938871 5 [place] (ZXL440) EMERALD Cardinal 1 502-455 311745 003288 167078 5 Guide Wire Health (502-455) MULTIPACK Cardinal 1 583748 5 JL 4.0 5Fr Health catheter MULTIPACK Cardinal 1 045488 5 3DRC 5Fr Health catheter DIAGNOSTIC Cardinal 1 [id number] 283035 967636 137330 15 AR MOD 5Fr Health Catheter (907383Z) DIAGNOSTIC Cardinal 1 [id number] 035715 356708 343085 5 LCB 5Fr Health catheter (429714Q) DIAGNOSTIC Cardinal 1 [id number] 404879 955419 050535 5 IM 5Fr Health catheter (235683F) EXOSEAL 5Fr Cardinal 1 EX500 680841 385609 719560 10 (EX500) Health MULTIPACK Cardinal 1 333494 5 Pigtail 5 Health Fr catheter Signature Audit [place] Stage Time Signature Unsigned Intra-Procedure 04/21/2019 Carmen Fonseca 3:56:35 PM RT(R) Intra-Procedure 04/21/2019 Sean Stinson RN 3:56:54 PM Intra-Procedure 04/21/2019 Freddy Giordano MD 3:57:[address] [place] [address]
[2019-04-20 12:11] VITALS: BP 118/57
[2019-04-20 12:24] LABS: BASOPHILS 0.2 % (0-2); EOSINOPHILS 0.8 % (0-7); HEMATOCRIT 36.7 % (42.0-54.0); LYMPHOCYTES 39.9 % (15-50); MCH 30.4 pg (26.0-34.0); MCHC 32.7 g/dL (31.0-37.0); MCV 92.9 fL (80.0-100.0); MEAN PLATELET VOLUME 8.8 fL (7.4-10.4); MONOCYTES 10.2 % (2-11); NEUTROPHILS 48.9 % (40-80); PLATELET COUNT 200 10x3/uL (130-400); RBC 3.95 10x6/uL (4.20-6.10); RDW 13.3 % (11.5-14.5); WBC 4.8 10x3/uL (4.8-10.8)
[2019-04-20 12:32] LABS: INR 0.94 (0.85-1.17); PROTIME 12.5 SECONDS (11.6-15.0)
[2019-04-20 12:35] LABS: CALC OSMOLALITY 279 mosm/kg (275-300); CALCIUM 8.2 mg/dL (8.5-10.1); CARBON DIOXIDE 26.4 mmol/L (21.0-32.0); CHLORIDE - SERUM 107 mmol/L (98-107); GLUCOSE 123 mg/dL (74-106); SODIUM 140 mmol/L (136-145); UREA NITROGEN 13 mg/dL (7-18); eGFR NON AFRICAN AMERICAN 81 mL/min (90-120)
[2019-04-20 12:47] LABS: ALBUMIN 3.3 g/dL (3.4-5.0); ALKALINE PHOSPHATASE 66 U/L (30-120); ALT (SGPT) 17 U/L (10-68); BILIRUBIN - TOTAL 0.54 mg/dL (0.2-1.3); CKMB 0.8 U/L (0.0-3.6); CREATINE KINASE 179 UL (21-232); MAGNESIUM - SERUM 2.2 mg/dL (1.8-2.4); PROTEIN - SERUM 6.3 g/dL (6.4-8.2); TROPONIN-I < 0.017 ng/mL (0.000-0.060)
[2019-04-20 15:03] VITALS: Ht 175.3 cm; Wt 75.3 kg
[2019-04-20 15:55] VITALS: BP 107/42
[2019-04-20] MEDS ORDERED: ATIVAN1 MG PO (19:56)
[2019-04-20 20:30] VITALS: BP 110/58
[2019-04-21 00:30] VITALS: BP 100/47
[2019-04-21 04:30] VITALS: BP 109/44
[2019-04-21 04:47] LABS: BASOPHILS 0.5 % (0-2); EOSINOPHILS 0.2 % (0-7); HEMATOCRIT 33.9 % (42.0-54.0); HEMOGLOBIN 11.2 g/dL (13.5-17.5); LYMPHOCYTES 40.8 % (15-50); MCH 30.5 pg (26.0-34.0); MCV 92.4 fL (80.0-100.0); MONOCYTES 10.4 % (2-11); NEUTROPHILS 48.1 % (40-80); PLATELET COUNT 200 10x3/uL (130-400); RBC 3.67 10x6/uL (4.20-6.10); RDW 13.1 % (11.5-14.5); WBC 4.3 10x3/uL (4.8-10.8)
[2019-04-21 05:25] LABS: ALBUMIN 3.1 g/dL (3.4-5.0); ALKALINE PHOSPHATASE 60 U/L (30-120); ALT (SGPT) 19 U/L (10-68); BILIRUBIN - TOTAL 0.53 mg/dL (0.2-1.3); CALCIUM 8.4 mg/dL (8.5-10.1); CARBON DIOXIDE 27.8 mmol/L (21.0-32.0); CHLORIDE - SERUM 106 mmol/L (98-107); CHOL - HDL RATIO 3.6 ratio (2.3-4.9); CHOLESTEROL, TOTAL 121 mg/dL (0-200); CKMB 0.7 U/L (0.0-3.6); CREATINE KINASE 140 UL (21-232); GLUCOSE 98 mg/dL (74-106); HDL CHOLESTEROL 34 mg/dL (32-96); LDL CHOLESTEROL 75 mg/dL (0-100); LDL-HDL RATIO 2.2 ratio (1.5-3.5); POTASSIUM - SERUM 4.1 mmol/L (3.5-5.1); PROTEIN - SERUM 6.4 g/dL (6.4-8.2); SODIUM 138 mmol/L (136-145); TRIGLYCERIDE 63 mg/dL (30-200); eGFR NON AFRICAN AMERICAN 81 mL/min (90-120)
[2019-04-21 05:45] LABS: CALC OSMOLALITY 277 mosm/kg (275-300); TROPONIN-I < 0.017 ng/mL (0.000-0.060); UREA NITROGEN 18 mg/dL (7-18)
[2019-04-21 08:43] VITALS: BP 90/46
[2019-04-21 11:46] VITALS: BP 103/37
[2019-04-21 15:01] LABS: BILIRUBIN NEGATIVE (NEGATIVE); GLUCOSE NEGATIVE (NEGATIVE); KETONE NEGATIVE (NEGATIVE); NITRITE NEGATIVE (NEGATIVE); UROBILINOGEN NORMAL (NORMAL)
[2019-04-21 15:07] LABS: UDS - AMPHET NEGATIVE QUAL (NEGATIVE); UDS - BARB NEGATIVE QUAL (NEGATIVE); UDS - BENZO NEGATIVE QUAL (NEGATIVE); UDS - COCAINE NEGATIVE QUAL (NEGATIVE); UDS - OPIATE NEGATIVE QUAL (NEGATIVE); UDS - PCP NEGATIVE QUAL (NEGATIVE); UDS - THC NEGATIVE QUAL (NEGATIVE)
[2019-04-21 22:35] VITALS: BP 120/65
[2019-04-22] VITALS (8 sets, daily range): BP systolic 100–142; BP diastolic 44–66
[2019-04-22 05:34] LABS: BASOPHILS 0.4 % (0-2); EOSINOPHILS 0.4 % (0-7); HEMATOCRIT 35.4 % (42.0-54.0); HEMOGLOBIN 11.5 g/dL (13.5-17.5); IMMATURE GRANULOCYTES 0.2 % (0-5); LYMPHOCYTES 39.1 % (15-50); MCH 29.9 pg (26.0-34.0); MCHC 32.5 g/dL (31.0-37.0); MCV 91.9 fL (80.0-100.0); MONOCYTES 10.6 % (2-11); NEUTROPHILS 49.3 % (40-80); PLATELET COUNT 216 10x3/uL (130-400); RBC 3.85 10x6/uL (4.20-6.10); RDW 13.1 % (11.5-14.5); WBC 5.1 10x3/uL (4.8-10.8)
[2019-04-22 06:08] LABS: ANION GAP 9.5 mmol/L (8-16); CALCIUM 8.2 mg/dL (8.5-10.1); CARBON DIOXIDE 27.3 mmol/L (21.0-32.0); CREATININE - SERUM 1.2 mg/dL (0.6-1.3); POTASSIUM - SERUM 3.8 mmol/L (3.5-5.1)
--- NOTE | 2019-04-22 11:47 | CN ---
PATIENT NAME:RANDA ROSENBAUM JR MEDICAL RECORD: [id number] : 58 LOCATION:D. D.2120 ADMIT DATE: 04/21/19 ACCOUNT: [id number] CONSULTING PHYSICIAN: ADAN GARCIA MD REFERRING PHYSICIAN: MILEY TALAVERA MD DATE OF CONSULTATION: 04/21/2019 HISTORY OF PRESENT ILLNESS: The patient was not in his room when I went to see him. His was there. He had been taken to the cleaning laborer for cardiac catheterization. The gives me a great deal of background history. She says that this is a new onset of confusion a week ago, he walked out of his house, could not find his way home, ended up in a service station and a bad part of town late at night. She says since then he has been confused, not making sense, sometimes talking to persons not present. She says he does not drink. She tells me that he does abuse the Ativan that he was given on a monthly basis. He was given 3 mg of Ativan a month by his primary care physician. She says that he will take the whole 90 pills in the first week and then be out of the medicine. His urine drug screen is negative for benzodiazepine. He does not show evidence of benzodiazepine withdrawal based on his vital signs, so I am not sure how to explain his confusion. The patient also has a history of opiate addiction and is currently taking Suboxone. The prescription drug monitoring program lists the dosage as 24 mg a day, and in the hospital here, he is only on 2 mg a day. The patient was returned to the room from the cleaning laborer while I was still talking to his , but he was sedated, not uninterviewable. I think I have a fair amount of information. I am going to start him on a low dose of Trilafon to assist with thought disorganization and I will follow up with him tomorrow to complete the interview and evaluation. At this point, my assessment is unclear, but included in the differential are substance use disorder and/or withdrawal symptoms associated with that. His relative youth at 58 along with the fact that this was an acute onset, both tend to argue against some sort of underlying dementing process, but it is certainly possible even at age 58. I will complete the assessment tomorrow and give a more enlightened assessment and recommendation. TRANSINT:[id number] Voice Confirmation ID: [id number] DOCUMENT ID: [id number] ADAN GARCIA MD at 1147 CC: [id number] DICTATION DATE: 04/21/19 162 MATCHBOOK ASSEMBLER: 04/21/19 2249 ADM IN [place] [address] [place] [address]
[2019-04-23] VITALS: BP 116/55
[2019-04-23 04:00] VITALS: BP 137/62
[2019-04-23 07:28] LABS: BASOPHILS 0.4 % (0-2); EOSINOPHILS 0.4 % (0-7); HEMATOCRIT 41.2 % (42.0-54.0); HEMOGLOBIN 13.7 g/dL (13.5-17.5); IMMATURE GRANULOCYTES 0.2 % (0-5); LYMPHOCYTES 30.3 % (15-50); MCH 30.6 pg (26.0-34.0); MCHC 33.3 g/dL (31.0-37.0); MEAN PLATELET VOLUME 9.3 fL (7.4-10.4); MONOCYTES 11.9 % (2-11); NEUTROPHILS 56.8 % (40-80); PLATELET COUNT 251 10x3/uL (130-400); RBC 4.48 10x6/uL (4.20-6.10); WBC 5.2 10x3/uL (4.8-10.8)
[2019-04-23 07:29] LABS: ANION GAP 10.8 mmol/L (8-16); CALCIUM 9.1 mg/dL (8.5-10.1); CARBON DIOXIDE 27.3 mmol/L (21.0-32.0); CREATININE - SERUM 1.1 mg/dL (0.6-1.3); POTASSIUM - SERUM 4.1 mmol/L (3.5-5.1)
[2019-04-23 09:00] VITALS: BP 105/60
[2019-04-23 09:39] LABS: UDS - AMPHET NEGATIVE QUAL (NEGATIVE); UDS - BARB NEGATIVE QUAL (NEGATIVE); UDS - BENZO POSITIVE QUAL (NEGATIVE); UDS - COCAINE NEGATIVE QUAL (NEGATIVE); UDS - OPIATE NEGATIVE QUAL (NEGATIVE); UDS - PCP NEGATIVE QUAL (NEGATIVE); UDS - THC NEGATIVE QUAL (NEGATIVE)
[2019-04-23 12:00] VITALS: BP 116/53
[2019-04-23] MEDS ORDERED: REMERON15 MG PO (14:30)
--- NOTE | 2019-04-23 15:31 | CN ---
PATIENT NAME:RANDA ROSENBAUM JR MEDICAL RECORD: [id number] : 58 LOCATION:D.M2 D.2120 ADMIT DATE: 04/21/19 ACCOUNT: [id number] CONSULTING PHYSICIAN: ADAN GARCIA MD REFERRING PHYSICIAN: MILEY TALAVERA MD DATE OF CONSULTATION: 04/22/2019 PSYCHIATRIC EVALUATION IDENTIFYING DATA: The patient is 58 years old and he is admitted to the hospital on a voluntary basis through the Emergency Room. CHIEF COMPLAINT: Chest pain. HISTORY OF PRESENT ILLNESS: The patient apparently has had some significant past cardiac history including coronary artery bypass grafting and stents. On this occasion, he presents complaining of chest pain and is in process of being evaluated. The reason for this psychiatric consultation is associated with some confusion. As mentioned yesterday, I went to see the patient, but he was off having a cardiac catheterization. His told me that about a week ago, he had been quite confused. He has been confused ever since. The patient today is with his son. The is not present. The patient minimizes the confusion and indeed has a normal mental status examination. He does tell me that he has been quite depressed, but strongly emphasizes that he is not wanting to hurt himself. He believes that the depression is associated with the bypass surgery and that he has never been quite the same from a mood standpoint ever since. He has no psychotic symptoms. PAST MEDICAL HISTORY: Significant for the hypertension and the coronary artery disease along with some chronic back pain. PAST PSYCHIATRIC HISTORY: Significant for opiate addiction and the patient is in a Suboxone clinic and has been for the past 5 years. His says he abuses the Ativan that is prescribed for him and that would certainly be a good explanation for some confusion. He is not showing evidence of benzodiazepine withdrawal currently. ASSESSMENT: 1. Major depression. 2. Opiate dependence. 3. Benzodiazepine abuse. PLAN: At this time, the patient does not have evidence of a dementing illness. He is fully oriented and is able to speak to me in a conversant rational way about recent and remote events. He clearly is depressed. He complains bitterly about insomnia. I am going to start him on a low dose of Remeron and the dose can be increased. Remeron has both antidepressant and some sedative hypnotic properties. If the core problem is depression, then as the depression improves, the sleep will improve. At this point, I am not sure how to address the insomnia even though that is a very big complaint of his. If he is having some withdrawal symptoms from the benzodiazepine, he is not going to sleep well and that could go on for some time. Also, he is in the hospital, which is difficult for people to sleep well and he is saying that the insomnia is also a problem at home. If he is taking 3 mg a day of Ativan and that is still not allowing him to sleep or he is overtaking the 3 mg of Ativan a day and that allows him to CONSULT REPORT [id number] RANDA ROSENBAUM JR sleep, but then when he is out, he cannot sleep. I think there is an obvious explanation for the insomnia. At this point, I am not going to address it in an aggressive way. I do recommend he have outpatient mental health followup. He sees Dr. Figueroa, has a great deal of confidence in Dr. Figueroa and wants to continue to have treatment with Dr. Figueroa. I know [facility] has outpatient therapists and it would be very reasonable for him to see a counselor for Dr. Figueroa to manage his medications otherwise. Dr. Figueroa feels that the psychiatric pharmacology is more than which should be handled in a primary care office. I would recommend that he refer the patient to [facility]. Thank you for allowing me to participate in the care of this patient. TRANSINT:[id number] Voice Confirmation ID: [id number] DOCUMENT ID: [id number] ADAN GARCIA MD at 1531 CC: [id number] DICTATION DATE: 04/22/19 1407 CEMENT GUN OPERATOR: 04/22/19 1623 ADM IN [facility] [address] [place] [address]
--- NOTE | 2019-04-24 09:20 | MORECARE ---
CASE MANAGEMENT DISCHARGE SUMMARY PATIENT: RANDA ROSENBAUM JR UNIT: [id number] ADM DATE: 04/21/19 AGE: 58 : 58 SEX: M ROOM/BED: D.2120 AUTHOR: KARSON KAMARA PHYSICIAN: REFERRING PHYSICIAN: MILEY TALAVERA MD DATE OF SERVICE: 04/24/19 Discharge Plan Patient Name: RANDA ROSENBAUM [facility] [facility] 1960 Planned Disposition: Home Anticipated Discharge Date: 04/23/19 Discharge Date: 04/23/2019 Expected LOS: 2 Initial Reviewer: [email or web address] Initial Review Date: 04/24/2019 Generated: 04/24/19 10:20 am Patient Name: RANDA ROSENBAUM Page [id number] at 0920 All edits/amendments must be made on the electronic document DICTATION DATE: 04/24/19919 CURTAIN HEMMER AUTOMATIC: SANTOS 04/24/19919 RPT#: [id number] DC DATE:04/23/19 STATUS: DIS IN [facility] [address] [facility] [place] [address] END OF REPORT
== END 2019-04-23 17:33 | disposition home or self-care (01) | DRG 287 ==
LOC: D.ER 11:47 → D.M2 13:51 → OBSVTIME 14:06 → D.M2 04-21 16:01
PROVIDERS: Emergency Medicine; Family Medicine; Internal Medicine Cardiovascular Disease; ADMIT Internal Medicine Nephrology; ATTEND Internal Medicine Nephrology
PROC: B2111ZZ Fluoroscopy of Multiple Coronary Arteries using Low Osmolar Contrast (ICD-10-PCS; 2019-04-21)
PROC: B2151ZZ Fluoroscopy of Left Heart using Low Osmolar Contrast (ICD-10-PCS; 2019-04-21)
PROC: 4A023N7 Measurement of Cardiac Sampling and Pressure, Left Heart, Percutaneous Approach (ICD-10-PCS; 2019-04-21)
PROC: B2181ZZ Fluoroscopy of Left Internal Mammary Bypass Graft using Low Osmolar Contrast (ICD-10-PCS; 2019-04-21)
PROC: B2121ZZ Fluoroscopy of Single Coronary Artery Bypass Graft using Low Osmolar Contrast (ICD-10-PCS; principal; 2019-04-21 14:50)
DX: I25.110 Atherosclerotic heart disease of native coronary artery with unstable angina pectoris (principal); F11.20 Opioid dependence, uncomplicated; R00.1 Bradycardia, unspecified; D64.9 Anemia, unspecified; I10 Essential (primary) hypertension; F32.9 Major depressive disorder, single episode, unspecified; F13.10 Sedative, hypnotic or anxiolytic abuse, uncomplicated; E78.5 Hyperlipidemia, unspecified

== ENCOUNTER 2019-05-02 07:47 | Day surgery (SDC) | payer MEDICAID ==
[~2019-05-02] VITALS: Ht 175.3 cm; Wt 73.6 kg
[2019-05-02] VITALS (10 sets, daily range): BP systolic 100–127; BP diastolic 34–67; Ht 175.3 cm; Wt 73.6 kg
--- NOTE | ~2019-05-02 | OP ---
PATIENT NAME: RANDA ROSENBAUM JR MEDICAL RECORD: [id number] :58 LOCATION:D.I D.CV06 ADMISSION DATE: SURGEON: HAIDER BERNSTEIN MD DATE OF OPERATION: 05/02/2019 SURGEON: Haider Bernstein MD ANESTHESIA: General, Dr. Rubio. OPERATION PERFORMED: Insertion of dual chamber pacing system. PREOPERATIVE DIAGNOSIS: Sick sinus syndrome with bradycardia, symptomatic. POSTOPERATIVE DIAGNOSIS: Sick sinus syndrome with bradycardia, symptomatic. INDICATION FOR OPERATION: Symptomatic bradycardia, sick sinus syndrome. FINDINGS AT OPERATION: Blood loss less than 5 mL. FINDINGS OF THE OPERATION: The pacemaker Medtronic model #W1DR01, serial number [id number]. ATRIAL LEAD: Medtronic model #5076-45, serial number [id number]. Ventricular lead Medtronic model number 4074-52, serial number [id number]. LEAD ANALYSIS: Atrial lead, P-wave 1.9, threshold 0.4 volts, impedance 509 ohms. Ventricular lead, R-wave 3.9, threshold 0.4 volts, impedance 684 ohms. DESCRIPTION OF PROCEDURE: After informed consent, adequate preoperative medication evaluation, the patient was brought to the operating room, placed on the table in the supine position. After induction of general anesthesia and application of appropriate monitoring devices, the left chest and neck prepped and draped in sterile field, utilizing Betadine scrub, alcohol, and Betadine solution. Betadine-impregnated drape was also used. An incision was made below the clavicle and dissection carried down the fascia. Hemostasis maintained with electrocautery. A pacemaker pocket was formed. Subclavian vein was cannulated with the introducers, leads placed in the heart. The above electrophysiologic study was done. They felt to be in good position. The leads were secured. The leads were then connected to pulse generator and pacemaker placed in the pocket. Pacemaker fired, captured and sensed appropriately. Pocket was irrigated. Instrument count and sponge count were correct times 2. The wound was closed in layers utilizing 3-0 Vicryl on deep subcutaneous tissue, 5-0 subcuticular Monocryl on the skin. Sterile dressings were applied. The patient tolerated procedure well and transferred to postanesthesia recovery in satisfactory condition. TRANSINT:[id number] Voice Confirmation ID: [id number] DOCUMENT ID: [id number] OPERATIVE REPORT [id number] RANDA ROSENBAUM JR, EDWARD MD CC: [id number] DICTATION DATE: 05/02/19 1242 PASSENGER COACH DRIVER: 05/02/19 221 REG [facility] [address] [id number]
[~2019-05-02 07:47] MED LIST changes: +REMERON15 MG PO
[2019-05-02 08:19] LABS: HEMATOCRIT 34.6 % (42.0-54.0); HEMOGLOBIN 11.5 g/dL (13.5-17.5); MCH 30.4 pg (26.0-34.0); MCHC 33.2 g/dL (31.0-37.0); MCV 91.5 fL (80.0-100.0); MEAN PLATELET VOLUME 8.9 fL (7.4-10.4); RBC 3.78 10x6/uL (4.20-6.10); RDW 12.9 % (11.5-14.5); WBC 6.6 10x3/uL (4.8-10.8)
[2019-05-02 08:29] LABS: ANION GAP 8.6 mmol/L (8-16); CALCIUM 8.7 mg/dL (8.5-10.1); CREATININE - SERUM 1.1 mg/dL (0.6-1.3); POTASSIUM - SERUM 4.6 mmol/L (3.5-5.1)
[2019-05-02 08:34] LABS: APTT 33.8 SECONDS (22.8-39.4); INR 0.92 (0.85-1.17); PROTIME 12.4 SECONDS (11.6-15.0)
[2019-05-02] MEDS ORDERED: KLONOPIN1 MG PO (08:55)
--- NOTE | 2019-05-02 09:31 | NUR ---
ACCORDING TO THE SUICIDE RISK SCRFEEN THE PATIENT RATES LOW. HE DOES NOT REQUIRE ANY 1:1 OBSERVATION AT THIS TIME.
--- NOTE | 2019-05-02 14:00 | NUR ---
PT RECIEVED FROM SURGERY VIA BED. MONITOR EQUIP ESTABLISHED. VSS. HR 60 ATRIAL PACED. LEFT ARM IN A SLING. L UPPER CHEST PPM SITE CDI.
--- NOTE | 2019-05-02 16:30 | NUR ---
PT REMAINS LETHARGIC. AWAKENS BRIEFLY FOLLOWS COMMANDS. GOES QUICKLY BACK TO SLEEP. VSS
--- NOTE | 2019-05-02 19:20 | NUR ---
REPORT REC'D AND CARE ASSUMED, REC'D PT RESTING IN BED, AWAKENS TO VERBAL STIMULI, ORIENTED X 4, O2 @ 2 LITERS VIA NC, RIGHT HAND PIV WITH NS @ 10CC/HR, LEFT UPPER CHEST DRSG CDI, LEFT ARM IN SLING, PT REQUIRES FREQUENT REMINDERS TO NOT USE LEFT ARM, AT BS TO HELP REMIND PATIENT, PT DENIES PAIN, CM-WITH ATRIALLY PACED BEATS NOTED AT 60, BP STABLE, SR UP X 2, BED IN LOW POSITION, CALL LIGHT IN REACH.
--- NOTE | 2019-05-02 20:30 | NUR ---
VISITORS AT BS, UPDATE GIVEN AND QUESTIONS ANSWERED, PT RESTING ON RIGHT SIDE, EYES CLOSED, RESP EVEN AND UNLABORED.
--- NOTE | 2019-05-02 22:00 | NUR ---
PT DIFFICULT TO AWAKEN, BUT ORIENTED ONCE AWAKE, EVENING MEDS GIVEN ORDERED, BP STABLE, WILL MONITOR CLOSELY FOR CHANGES.
--- NOTE | 2019-05-02 23:00 | NUR ---
PT AWAKE REQUESTING URINAL, URINAL PROVIDED, CALL LIGHT IN REACH.
[2019-05-03] VITALS (14 sets, daily range): BP systolic 93–132; BP diastolic 47–69
--- NOTE | 2019-05-03 01:00 | NUR ---
NO CHANGES IN STATUS AT THIS TIME.
--- NOTE | 2019-05-03 03:30 | NUR ---
REASSESSMENT COMPLETED, SLING REPOSITIONED AND PT REMINDED TO NOT USE LEFT ARM AND TO LEAVE IN SLING, VERBALIZES UNDERSTANDING, WILL CONT TO MONITOR FOR CHANGES.
--- NOTE | 2019-05-03 04:30 | NUR ---
PT AWAKE, REQUESTING ICE WATER, ICE WATER PROVIDED, PT DENIES FURTHER NEEDS.
--- NOTE | 2019-05-03 07:30 | NUR ---
AWAKES EASILY TO VERBAL STIMULI. IV RIGHT HAND WITHOUT REDNESS OR SWELLING INFUSING WITH NS AT KVO. LEFT ARM REPLACED IN SLING. REMINDED PATIENT TO KEEP LEFT ARM SLING FOR NOW. VERBALIZED UNDERSTANDING. SCD AND MASON ON LOWER LEGS. MONITOR PACER RHYTHM. DENIES PAIN. NO DISTRESS. OXYGEN OFF. HEAD OF BED ELEVATED 30 DEGREES. DRESSING LEFT SHOULDER DRY AND INTACT.
--- NOTE | 2019-05-03 08:00 | NUR ---
BREAKFAST TRAY SERVED. ATE WELL
--- NOTE | 2019-05-03 08:20 | NUR ---
PACEMAKER PERSONEL HERE. PACEMAKER CHECKS OK. PATIENT STILL NAPPING.
--- NOTE | 2019-05-03 10:30 | NUR ---
UP AMBULATING IN ROOM. WALKED TO BATHROOM. CUP OF COFFEE SERVED. NO DISTRESS. REMINDED TO NOT USE LEFT ARM. SLING IN PLACE. VERBALIZED UNDERSTANDING OF NOT USING LEFT ARM.
--- NOTE | 2019-05-03 11:30 | NUR ---
LUNCH TRAY SERVED. PATIENT UP IN CHAIR AT BEDSIDE. TOLERATING WELL. STILL NEEDS TO BE REMINDED TO NOT USE LEFT ARM. SLING ADJUSTED
--- NOTE | 2019-05-03 12:52 | NUR ---
HERE UPDATE GIVEN
--- NOTE | 2019-05-03 13:30 | NUR ---
DR. CACERES HERE. DISCHARGE ORDERS RECEIVED.
--- NOTE | 2019-05-03 14:00 | NUR ---
REVIEWED DISCHARGED PAPERS WITH AND PATIENT. VERBALIZED UNDERSTANDING. HAS PACEMAKER CARD AND BOOKLET. PATIENT DISCHARGED HOME PER WHEEL CHAIR WITH AND SON. DENIES PAIN. NO DISTRESS. LEFT SHOULDER DRESSING DRY AND INTACT. LEFT ARM IN SLING.
== END 2019-05-03 14:00 | disposition home or self-care (01) ==
LOC: D.OPS 07:47 → D.CVICU 13:13 → D.ICU 14:37 → D.OPS 05-03 14:00
PROVIDERS: ATTEND Internal Medicine Cardiovascular Disease
DX: I49.5 Sick sinus syndrome (principal); I25.10 Atherosclerotic heart disease of native coronary artery without angina pectoris; I10 Essential (primary) hypertension; E78.5 Hyperlipidemia, unspecified; Z72.0 Tobacco use

== ENCOUNTER 2019-09-07 00:22 | Emergency (ER) | payer MEDICAID ==
[~2019-09-07] VITALS: Ht 175.3 cm; Wt 72.7 kg
[~2019-09-07 00:22] MED LIST changes: +KLONOPIN1 MG PO
[2019-09-07 00:25] VITALS: Ht 175.3 cm; Wt 72.7 kg
[2019-09-07 00:52] LABS: BASOPHILS 0.2 % (0-2); EOSINOPHILS 0.6 % (0-7); HEMATOCRIT 39.5 % (42.0-54.0); IMMATURE GRANULOCYTES 0.1 % (0-5); LYMPHOCYTES 23.6 % (15-50); MCHC 32.9 g/dL (31.0-37.0); MCV 91.2 fL (80.0-100.0); MEAN PLATELET VOLUME 8.6 fL (7.4-10.4); MONOCYTES 9.7 % (2-11); NEUTROPHILS 65.8 % (40-80); PLATELET COUNT 240 10x3/uL (130-400); RBC 4.33 10x6/uL (4.20-6.10); RDW 13.2 % (11.5-14.5); WBC 8.7 10x3/uL (4.8-10.8)
[2019-09-07 01:00] LABS: CALC OSMOLALITY 278 mosm/kg (275-300); CALCIUM 9.6 mg/dL (8.5-10.1); CARBON DIOXIDE 30.1 mmol/L (21.0-32.0); CHLORIDE - SERUM 101 mmol/L (98-107); CREATININE - SERUM 1.4 mg/dL (0.6-1.3); GLUCOSE 100 mg/dL (74-106); POTASSIUM - SERUM 3.4 mmol/L (3.5-5.1); SODIUM 138 mmol/L (136-145); UREA NITROGEN 20 mg/dL (7-18); eGFR NON AFRICAN AMERICAN 55 mL/min (90-120)
[2019-09-07 01:05] LABS: APTT 30.5 SECONDS (22.8-39.4); PROTIME 13.1 SECONDS (11.6-15.0)
[2019-09-07 01:13] LABS: ALBUMIN 3.8 g/dL (3.4-5.0); ALKALINE PHOSPHATASE 102 U/L (30-120); ALT (SGPT) 22 U/L (10-68); BILIRUBIN - TOTAL 0.92 mg/dL (0.2-1.3); PRO BNP 77 pg/mL (0-125); PROTEIN - SERUM 7.9 g/dL (6.4-8.2); TROPONIN-I < 0.017 ng/mL (0.000-0.060)
[2019-09-07] MEDS ORDERED: CLOTRIM ANTIFUN15 GM TOPICAL (01:46)
[2019-09-07 01:59] VITALS: BP 131/76
== END 2019-09-07 01:59 | disposition home or self-care (01) ==
LOC: D.ER 00:22
PROVIDERS: Family Medicine
DX: S20.219A Contusion of unspecified front wall of thorax, initial encounter (principal); I25.10 Atherosclerotic heart disease of native coronary artery without angina pectoris; Z95.0 Presence of cardiac pacemaker; I10 Essential (primary) hypertension; I25.2 Old myocardial infarction; Z72.0 Tobacco use; W50.0XXA Accidental hit or strike by another person, initial encounter; Y93.9 Activity, unspecified; Y92.9 Unspecified place or not applicable

== ENCOUNTER 2019-09-09 20:54 | Emergency (ER) | payer MEDICAID ==
[~2019-09-09] VITALS: Ht 175.3 cm; Wt 74.5 kg
[~2019-09-09 20:54] MED LIST changes: +CLOTRIM ANTIFUN15 GM TOPICAL
[2019-09-09 20:57] VITALS: Ht 175.3 cm; Wt 74.5 kg
[2019-09-09 22:12] VITALS: BP 140/81
== END 2019-09-09 22:12 | disposition home or self-care (01) ==
LOC: D.ER 20:54
DX: S16.1XXA Strain of muscle, fascia and tendon at neck level, initial encounter (principal); S09.90XA Unspecified injury of head, initial encounter; S30.0XXA Contusion of lower back and pelvis, initial encounter; W05.0XXA Fall from non-moving wheelchair, initial encounter; Y93.9 Activity, unspecified; Y92.9 Unspecified place or not applicable; I10 Essential (primary) hypertension; I25.2 Old myocardial infarction; Z72.0 Tobacco use

== ENCOUNTER 2020-06-29 07:07 | Emergency (ER) | payer BC ==
[~2020-06-29] VITALS: Ht 175.3 cm; Wt 77.3 kg
[2020-06-29 07:12] VITALS: BP 127/56; Ht 175.3 cm; Wt 77.3 kg
[2020-06-29 07:34] LABS: BASOPHILS 0.1 % (0-2); EOSINOPHILS 0.1 % (0-7); HEMOGLOBIN 11.9 g/dL (13.5-17.5); IMMATURE GRANULOCYTES 0.4 % (0-5); LYMPHOCYTE ABS# 0.84 10x3/uL (1.32-3.57); MCH 30.5 pg (26.0-34.0); MCV 89.7 fL (80.0-100.0); MEAN PLATELET VOLUME 8.8 fL (7.4-10.4); MONOCYTES 7.7 % (2-11); NEUTROPHIL ABS# 11.97 10x3/uL (1.78-5.38); NEUTROPHILS 85.7 % (40-80); RDW 13.4 % (11.5-14.5)
[2020-06-29 07:45] LABS: PLATELET COUNT 186 10x3/uL (130-400)
[2020-06-29 07:46] LABS: ANION GAP 15.4 mmol/L (8-16); CARBON DIOXIDE 22.6 mmol/L (21.0-32.0); CREATININE - SERUM 1.1 mg/dL (0.6-1.3)
[2020-06-29 08:01] LABS: ALBUMIN 3.2 g/dL (3.4-5.0); BILIRUBIN - TOTAL 2.15 mg/dL (0.2-1.3); PROTEIN - SERUM 7.1 g/dL (6.4-8.2)
[2020-06-29 08:19] LABS: C-REACTIVE PROTEIN 24.1 mg/dL (0.0-0.9)
[2020-06-29] MEDS ORDERED: HYDROCODONE-AC1 EAC2 PO (08:52)
[2020-06-29] MEDS ORDERED: CLEOCIN HCL300 MG PO (08:52)
== END 2020-06-29 08:58 | disposition left against medical advice (07) ==
LOC: D.ER 07:07
PROVIDERS: Family Medicine
DX: L03.113 Cellulitis of right upper limb (principal); I25.2 Old myocardial infarction; Z95.0 Presence of cardiac pacemaker; Z72.0 Tobacco use

== ENCOUNTER 2020-07-01 01:28 | Emergency (ER) | payer BC ==
[~2020-07-01] VITALS: Ht 175.3 cm; Wt 77.3 kg
[~2020-07-01 01:28] MED LIST changes: +CLEOCIN HCL300 MG PO; +HYDROCODONE-AC1 EAC2 PO
[2020-07-01 01:31] VITALS: BP 107/54; Ht 175.3 cm; Wt 77.3 kg
[2020-07-01 02:19] LABS: BASOPHILS 0.1 % (0-2); EOSINOPHILS 0.2 % (0-7); HEMATOCRIT 32.3 % (42.0-54.0); HEMOGLOBIN 10.8 g/dL (13.5-17.5); IMMATURE GRANULOCYTES 0.2 % (0-5); LYMPHOCYTE ABS# 1.04 10x3/uL (1.32-3.57); LYMPHOCYTES 10.9 % (15-50); MCH 30.3 pg (26.0-34.0); MCHC 33.4 g/dL (31.0-37.0); MCV 90.5 fL (80.0-100.0); MEAN PLATELET VOLUME 9.2 fL (7.4-10.4); MONOCYTES 11.7 % (2-11); NEUTROPHIL ABS# 7.33 10x3/uL (1.78-5.38); NEUTROPHILS 76.9 % (40-80); RBC 3.57 10x6/uL (4.20-6.10); RDW 13.2 % (11.5-14.5)
[2020-07-01 02:29] LABS: PLATELET COUNT 229 10x3/uL (130-400); WBC 9.5 10x3/uL (4.8-10.8)
[2020-07-01 02:31] LABS: ANION GAP 16.6 mmol/L (8-16); CALCIUM 8.5 mg/dL (8.5-10.1); CARBON DIOXIDE 22.4 mmol/L (21.0-32.0)
[2020-07-01 02:34] LABS: CREATININE - SERUM 1.8 mg/dL (0.6-1.3)
[2020-07-01 02:53] LABS: BILIRUBIN - TOTAL 1.12 mg/dL (0.2-1.3); PROTEIN - SERUM 7.1 g/dL (6.4-8.2)
[2020-07-01 03:13] LABS: C-REACTIVE PROTEIN 22.9 mg/dL (0.0-0.9)
== END 2020-07-01 03:11 | disposition other institution (70) ==
LOC: D.ER 01:28
PROVIDERS: Family Medicine
DX: B99.9 Unspecified infectious disease (principal); N28.9 Disorder of kidney and ureter, unspecified; I25.2 Old myocardial infarction

== ENCOUNTER 2020-07-03 11:15 | Inpatient (IN) | payer BC ==
[~2020-07-03] VITALS: Ht 175.3 cm; Wt 81.8 kg
[2020-07-03 11:27] VITALS: BP 130/59
[2020-07-03 12:14] LABS: BILIRUBIN NEGATIVE (NEGATIVE); KETONE NEGATIVE (NEGATIVE); NITRITE NEGATIVE (NEGATIVE); UROBILINOGEN NORMAL mg/dL (< 2); WHITE CELLS - URINE 0-5 HPF (0-1)
[2020-07-03 12:14] LABS: BASOPHILS 0.6 % (0-2); EOSINOPHILS 0 % (0-7); HEMATOCRIT 30.7 % (42.0-54.0); HEMOGLOBIN 10.1 g/dL (13.5-17.5); IMMATURE GRANULOCYTES 0.4 % (0-5); LYMPHOCYTE ABS# 1.09 10x3/uL (1.32-3.57); LYMPHOCYTES 22.1 % (15-50); MCH 29.6 pg (26.0-34.0); MCHC 32.9 g/dL (31.0-37.0); MEAN PLATELET VOLUME 8.8 fL (7.4-10.4); NEUTROPHILS 64.9 % (40-80); RBC 3.41 10x6/uL (4.20-6.10); WBC 4.9 10x3/uL (4.8-10.8)
[2020-07-03 12:15] LABS: BACTERIA FEW HPF (NONE SEEN)
[2020-07-03 12:17] LABS: PLATELET COUNT 283 10x3/uL (130-400)
[2020-07-03 12:20] LABS: UDS - AMPHET NEGATIVE QUAL (NEGATIVE); UDS - BARB NEGATIVE QUAL (NEGATIVE); UDS - BENZO POSITIVE QUAL (NEGATIVE); UDS - COCAINE NEGATIVE QUAL (NEGATIVE); UDS - OPIATE NEGATIVE QUAL (NEGATIVE); UDS - PCP NEGATIVE QUAL (NEGATIVE); UDS - THC NEGATIVE QUAL (NEGATIVE)
[2020-07-03 12:27] LABS: APTT 33.2 SECONDS (22.8-39.4); INR 1.06 (0.85-1.17); PROTIME 12.8 SECONDS (11.6-15.0)
[2020-07-03 12:35] LABS: ANION GAP 14.8 mmol/L (8-16); CARBON DIOXIDE 24.3 mmol/L (21.0-32.0); CREATININE - SERUM 1.2 mg/dL (0.6-1.3); POTASSIUM - SERUM 4.1 mmol/L (3.5-5.1)
[2020-07-03 12:49] LABS: ALBUMIN 2.9 g/dL (3.4-5.0); BILIRUBIN - TOTAL 0.89 mg/dL (0.2-1.3); PROTEIN - SERUM 6.8 g/dL (6.4-8.2)
--- NOTE | 2020-07-03 14:05 | NUR ---
REPORT WAS GIVEN BY JAIME MURPHY TO FELIZ @ [id number].
--- NOTE | 2020-07-03 14:19 | NUR ---
PT TAKEN TO ROOM 2104 VIA WHEELCHAIR
--- NOTE | 2020-07-03 14:25 | NUR ---
PT TO ROOM FROM ER VIA WHEELCHAIR. IV VANC INFUSING ON ARRIVAL. PT STATES HES COLD, AIR ADJUSTED. IV TO LEFT HAND.
--- NOTE | 2020-07-03 14:27 | NUR ---
PATIENT TO ROOM 2105 VIA W/C. PATIENT IS AAOX4, UP AD JIMMIE. NO S/S OF DISTRESS OBSERVED, RR EVEN AND UNLABORED ON ROOM AIR. PIV TO LT HAND, PATENT, ABX INFUSING. MICHELLE HULL AT BEDSIDE PERFORMING ASSESSMENT.
[2020-07-03 14:52] VITALS: BP 111/56; Ht 175.3 cm; Wt 81.8 kg
--- NOTE | 2020-07-03 16:00 | NUR ---
ADMINISTERED SCHEDULED ASPIRIN, PATIENT ASKED, "IS THAT DOPE?" STATED TO PATIENT IT IS ABSOLUTLEY NOT. PATIENT THEN ASKED FOR A PHONEBOOK, WAS NOT ABLE TO LOCATE ONE FOR HIM. PATIENT DENIES FURTHER NEEDS AT THIS TIME AND IS STILL SITTING IN CHAIR. CL IN REACH, BED LOCKED AND LOWERED. WILL CPOC.
[2020-07-03 16:20] VITALS: BP 110/61
--- NOTE | 2020-07-03 17:45 | NUR ---
PATIENT STATES HE'S VERY DISGRUNTLED. WANTS TO KNOW WHY HIS ELBOW ISN'T BETTER. EXPLAINED TO PATIENT THAT HE'S ONLY JUST BEGUN ABX THERAPY SO IT'LL TAKE A FEW DAYS FOR THE SWELLING TO GO DOWN AND THE PAIN WILL EASE UP. INFORMED PATIENT HE CAN HAVE HIS PRN MORPHINE @ 1846 PATIENT STATES, "THATS A RIP OFF". HUNG ABX PER ORDER. PATIENT DENIES FURTHER NEEDS AT THIS TIME.
[2020-07-03 19:59] VITALS: BP 136/74
[2020-07-04 00:15] VITALS: BP 92/41
[2020-07-04 04:56] VITALS: BP 113/57
[2020-07-04 06:25] LABS: BASOPHILS 0.5 % (0-2); EOSINOPHILS 0.3 % (0-7); HEMATOCRIT 30.8 % (42.0-54.0); IMMATURE GRANULOCYTES 0.5 % (0-5); LYMPHOCYTE ABS# 0.64 10x3/uL (1.32-3.57); LYMPHOCYTES 16.8 % (15-50); MCH 29.5 pg (26.0-34.0); MCHC 32.5 g/dL (31.0-37.0); MCV 90.9 fL (80.0-100.0); MEAN PLATELET VOLUME 8.7 fL (7.4-10.4); MONOCYTES 15.2 % (2-11); NEUTROPHIL ABS# 2.54 10x3/uL (1.78-5.38); NEUTROPHILS 66.7 % (40-80); PLATELET COUNT 262 10x3/uL (130-400); RBC 3.39 10x6/uL (4.20-6.10); RDW 13.1 % (11.5-14.5); WBC 3.8 10x3/uL (4.8-10.8)
[2020-07-04 06:37] LABS: ALBUMIN 2.7 g/dL (3.4-5.0); ANION GAP 11.1 mmol/L (8-16); BILIRUBIN - TOTAL 0.85 mg/dL (0.2-1.3); CALCIUM 8.6 mg/dL (8.5-10.1); CARBON DIOXIDE 24.9 mmol/L (21.0-32.0); CREATININE - SERUM 1.2 mg/dL (0.6-1.3); PHOSPHOROUS 3.2 mg/dL (2.5-4.9); PROTEIN - SERUM 6.5 g/dL (6.4-8.2)
--- NOTE | 2020-07-04 07:00 | NUR ---
REPORT RECEIVED. PATIENT IS SITTING UP IN CHAIR, RESTING WITH EYES CLOSED. NO S/S OF DISTRESS OBSERVED, RR EVEN AND UNLABORED ON ROOM AIR. PIV TO LT HAND, PATENT, INFUSING VANCOMYCIN. NO NEEDS EXPRESSED AT THIS TIME. CL IN REACH, BED LOCKED AND LOWERED. WILL CPOC.
[2020-07-04 07:49] VITALS: BP 117/57
[2020-07-04 12:24] VITALS: BP 95/50
--- NOTE | 2020-07-04 12:35 | NUR ---
I have reviewed this patient and I concur with the Shift Assessment completed by the Licensed Practical Nurse today this shift.
--- NOTE | 2020-07-04 15:53 | NUR ---
IV SITE WRAPPED SO, PATIENT GETTING IN SHOWER. SON IN ROOM.
--- NOTE | 2020-07-04 17:04 | NUR ---
PATIENT OUT IN HALLWAY DEMANDING HIS "PAIN SHOT". ADMINISTERED PRN MORPHINE PER ORDERS. PATIENT IS EATING HIS DINNER NOW.
[2020-07-04 19:52] VITALS: BP 118/49
--- NOTE | 2020-07-04 19:52 | NUR ---
INITIAL ROUNDS COMPLETED AT 1910 HRS. PT ON PHONE. NO DISTRESS NOTED. ASSESSMENT COMPLETED AT 1935 HRS. ALERT AND ORIENTED TO PERSON,PLACE AND TIME..RICARDO. PALPABLE PERIPHERAL PULSES. IV TO L HAND SL. LUNGS CTA. R ELBOW SWOLLEN, RED WITH 2 SORES APPROX 1CM IN DIAMETER. CALL LIGHT WITHIN REACH.
--- NOTE | 2020-07-04 22:31 | NUR ---
MORPHINE 4MG SIVP GIVEN FOR C/O R ELBOW PAIN.
[2020-07-04 23:49] VITALS: BP 115/49
--- NOTE | 2020-07-05 02:50 | NUR ---
PT RESTING WITH EYES CLOSED. IN CHAIR. RESP EVEN AND REGULAR. CALL LIGHT WITHIN REACH.
[2020-07-05 04:07] VITALS: BP 114/66
--- NOTE | 2020-07-05 04:16 | NUR ---
VSS. MORPHINE 4MG SIVP GIVEN FOR C/OR ELBOW PAIN 09/28. CALL LIGHT WITHIN REACH.
[2020-07-05 05:25] VITALS: BP 114/66
--- NOTE | 2020-07-05 06:12 | NUR ---
VSS THROUGHOUT NIGHT. PT CONTINUALLY ASKED FOR MORPHINE. PT STATED HE ALSO WANTED IV DILAUDID. INFORMED PT SPEAK TO THIS AM. NUMEROUS COMPLAINTS OF DIFFERENT BODY ACHES. WILL CONTINUE TO MONITOR.
[2020-07-05 06:29] LABS: BASOPHILS 0.5 % (0-2); EOSINOPHILS 0.3 % (0-7); HEMATOCRIT 32.5 % (42.0-54.0); HEMOGLOBIN 10.7 g/dL (13.5-17.5); IMMATURE GRANULOCYTES 0.5 % (0-5); LYMPHOCYTE ABS# 1.18 10x3/uL (1.32-3.57); LYMPHOCYTES 31.7 % (15-50); MCH 30.1 pg (26.0-34.0); MCHC 32.9 g/dL (31.0-37.0); MCV 91.5 fL (80.0-100.0); MEAN PLATELET VOLUME 8.8 fL (7.4-10.4); MONOCYTES 15.6 % (2-11); NEUTROPHIL ABS# 1.91 10x3/uL (1.78-5.38); NEUTROPHILS 51.4 % (40-80); PLATELET COUNT 273 10x3/uL (130-400); RBC 3.55 10x6/uL (4.20-6.10); RDW 13.2 % (11.5-14.5); WBC 3.7 10x3/uL (4.8-10.8)
[2020-07-05 06:40] LABS: ALBUMIN 2.9 g/dL (3.4-5.0); BILIRUBIN - TOTAL 0.46 mg/dL (0.2-1.3); CALCIUM 8.9 mg/dL (8.5-10.1); CARBON DIOXIDE 27.4 mmol/L (21.0-32.0); CREATININE - SERUM 1.3 mg/dL (0.6-1.3); MAGNESIUM - SERUM 2.1 mg/dL (1.8-2.4); POTASSIUM - SERUM 4.4 mmol/L (3.5-5.1); PROTEIN - SERUM 6.8 g/dL (6.4-8.2)
[2020-07-05 06:43] LABS: PHOSPHOROUS 4.3 mg/dL (2.5-4.9)
[2020-07-05 08:42] VITALS: BP 107/64
--- NOTE | 2020-07-05 12:45 | NUR ---
PT HAS PACEMAKER. MRI CANCELLED. LAMIN JACKSON NOTIFIED.
[2020-07-05] MEDS ORDERED: ADOXA100 MG PO (13:01)
--- NOTE | 2020-07-05 13:45 | NUR ---
D/C IV, TIP INTACT. DISCHARGE INSTRUCTIONS GIVEN. PATIENT IN HURRY TO LEAVE AND WALKED OUT ON OWN. REMAINS FREE FROM INJURY WHILE IN MY CARE.
== END 2020-07-05 14:02 | disposition home or self-care (01) | DRG 558 ==
LOC: D.ER 11:15 → D.M2 12:00
PROVIDERS: Family Medicine; ADMIT Emergency Medicine; ATTEND Emergency Medicine
DX: M71.121 Other infective bursitis, right elbow (principal); L03.113 Cellulitis of right upper limb; Z95.0 Presence of cardiac pacemaker; Z95.5 Presence of coronary angioplasty implant and graft; Z95.1 Presence of aortocoronary bypass graft; F32.9 Major depressive disorder, single episode, unspecified; F41.8 Other specified anxiety disorders